=== PATIENT | female | born 1960 | race Hispanic/Latino ===

== ENCOUNTER 2016-07-11 15:11 | Inpatient (IN) | payer BC, OTHER ==
[2016-07-11 15:13] VITALS: BMI 32.8
[2016-07-11] MEDS ORDERED: Oxycodone/Acetaminophen 5/325 mg Tab PO STA (15:43)
[2016-07-11] MEDS ORDERED: Morphine 4 mg/ml ISec IVP STA (16:45)
[2016-07-11 16:53] LABS: ADD MANUAL DIFF? NO
[2016-07-11 17:00] LABS: BASO # 0.02 K/mm3 (0.0-2.0); BASO % 0.2 % (0.0-3.0); EOS # 0.1 (0.0-0.7); GRAN # 8.01 (1.4-6.5); GRAN % 81.5 % (50.0-68.0); HEMATOCRIT 29.1 % (36.0-48.0); LYMPH # 0.8 (1.2-3.4); LYMPH % 8.6 % (22.0-35.0); MEAN CELL VOLUME 87.4 fL (80.0-105.0); MEAN CORPUSCULAR HEMOGLOBIN 28.8 pg (25.0-35.0); MEAN PLATELET VOLUME 10.3 fl (7.0-11.0); MONO # 0.9 (0.1-0.6); MONO % 8.7 % (1.0-6.0); PLATELET COUNT 328 10^3/uL (120.0-450.0); RED CELL DISTRIBUTION WIDTH 15.6 % (11.5-14.5); WHITE BLOOD COUNT 9.8 10^3/ul (4.5-11.0)
[2016-07-11 17:05] LABS: ALB/GLOB RATIO 1.4 (1.1-1.8); ALKALINE PHOSPHATASE 94 U/L (38-133); ALT/SGPT 24 U/L (7-56); AST/SGOT 24 U/L (15-39); BILIRUBIN,TOTAL 0.4 mg/dL (0.2-1.3); BLOOD UREA NITROGEN 22 mg/dL (7-21); CALCIUM 9.7 mg/dL (8.4-10.5); CARBON DIOXIDE 30 mmol/L (21-33); CHLORIDE 99 mmol/L (98-107); GFR AFRICAN-AMERICAN > 60; POTASSIUM 4.8 mmol/L (3.6-5.0); SODIUM 137 mmol/L (132-148); TOTAL PROTEIN 6.7 g/dL (5.8-8.3)
--- NOTE | 2016-07-11 17:08 | ED PDOC ---
Arrival/HPI - General Chief Complaint: Dental Pain Time Seen by Provider: 07/11/16 15:24 Historian: Patient - History of Present Illness Narrative History of Present Illness (Text): 07/11/16 16:55 56yo female with PMHx of hypertension, diabetes, breast CA and currently undergoing chemo referred to ED by Dr. Bradley for tooth ache. Patient states left sided upper incisor toothache started weeks ago. States it cracked months ago and then again last week. The pain became increasingly worse over the past few days. she noticed mild swelling of her left sided cheek with pain today. States she wanted to see a Dentist today, but Dr. Bradley referred her to ED secondary to her medical history. She took Tylenol at home without relieve. she denies fever chills, any other complaint. Past Medical History - Provider Review Nursing Documentation Reviewed: Yes - Infectious Disease Hx of Infectious Diseases: None - Cardiac Hx Cardiac Disorders: Yes Hx Hypertension: Yes - Pulmonary Hx Respiratory Disorders: No - Neurological Hx Neurological Disorder: No - HEENT Hx HEENT Disorder: Yes Other/Comment: Wears Glasses - Renal Hx Renal Disorder: No - Endocrine/Metabolic Hx Endocrine Disorders: Yes Hx Diabetes Mellitus Type 2: Yes - Hematological/Oncological Hx Blood Disorders: Yes Hx Cancer: Yes (left breast 2016) - Integumentary Hx Dermatological Disorder: No - Musculoskeletal/Rheumatological Hx Musculoskeletal Disorders: No - Gastrointestinal Hx Gastrointestinal Disorders: No - Genitourinary/Gynecological Hx Genitourinary Disorders: No - Psychiatric Hx Psychophysiologic Disorder: No Hx Substance Use: No - Surgical History Hx Section: Yes (Two) Hx Orthopedic Surgery: Yes (Left Knee) Hx Vascular Access Device: Yes (Right Side Port 03/2016) Other/Comment: lump removed left breast and lymph nodes due to CA 03/2016 - Anesthesia Hx Anesthesia: Yes Hx Anesthesia Reactions: No Hx Malignant Hyperthermia: No Family/Social History - Physician Review Nursing Documentation Reviewed: Yes Family/Social History: Unknown Family HX Smoking Status: Never Smoked Hx Alcohol Use: Yes Frequency of alcohol use: Socially Hx Substance Use: No Allergies/Home Meds Allergies/Adverse Reactions: Allergies No Known Allergies Allergy (Verified 06/29/16 09:01) Home Medications: Home Meds Medication Instructions Recorded Confirmed Aspirin [Ecotrin] 81 mg PO DAILY 06/29/16 07/12/16 Enalapril Maleate [Vasotec] 10 mg PO DAILY 06/29/16 07/12/16 Insulin Glargine/Lixisenatide 15 unit SQ DAILY 06/29/16 07/12/16 [Soliqua 100 Unit-33 Mcg/ml Pen] Metformin ER [Glucophage XR] 500 mg PO BID 06/29/16 07/12/16 Pravastatin Sodium [Pravachol] 20 mg PO DAILY 06/29/16 07/12/16 Insulin Aspart, Recombinant 100 unit SQ ACHS 07/11/16 07/12/16 [Novolog] Meclizine HCl [Motion Sickness 25 mg PO DAILY 07/11/16 07/12/16 Relief] Ondansetron [Zofran] 8 mg PO BID 07/11/16 07/12/16 Acyclovir [Zovirax] 400 mg PO DAILY 07/12/16 07/12/16 Review of Systems - Physician Review All systems were reviewed & negative as marked: Yes - Review of Systems Constitutional: Normal Eyes: Normal ENT: Other (Toothache) Respiratory: Normal Cardiovascular: Normal Gastrointestinal: Normal Genitourinary Female: Normal Musculoskeletal: Normal Skin: Normal Neurological: Normal Endocrine: Normal Hemo/Lymphatic: Normal Psychiatric: Normal Physical Exam Vital Signs Reviewed: Yes Vital Signs Temp Pulse Resp BP Pulse Ox 07/11/16 21:08 86 18 151/53 H 96 07/11/16 18:15 98.2 F 17 178/85 H 98 07/11/16 17:29 110 H 16 159/84 H 100 07/11/16 15:13 98.0 F 105 H 18 175/73 H 99 Temperature: Afebrile Blood Pressure: Normal Pulse: Regular Respiratory Rate: Normal Appearance: Positive for: Well-Appearing, Non-Toxic, Comfortable Pain Distress: None Mental Status: Positive for: Alert and Oriented X 3 - Systems Exam Head: Present: Atraumatic, Normocephalic Pupils: Present: PERRL Extroacular Muscles: Present: EOMI Conjunctiva: Present: Normal Mouth: Present: Moist Mucous Membranes, Other (Mild swelling with over laying tenderness over left cheek area). No: Normal Teeth (Left upper incissor noted to be partially cracked. No gingival swelling noted.) Neck: Present: Normal Range of Motion Respiratory/Chest: Present: Clear to Auscultation, Good Air Exchange. No: Respiratory Distress, Accessory Muscle Use Cardiovascular: Present: Regular Rate and Rhythm, Normal S1, S2. No: Murmurs Abdomen: Present: Normal Bowel Sounds. No: Tenderness, Distention, Peritoneal Signs Back: Present: Normal Inspection Upper Extremity: Present: Normal Inspection. No: Cyanosis, Edema Lower Extremity: Present: Normal Inspection. No: Edema Neurological: Present: GCS=15, CN II-XII Intact, Speech Normal Skin: Present: Warm, Dry, Normal Color. No: Rashes Psychiatric: Present: Alert, Oriented x 3, Normal Insight, Normal Concentration Medical Decision Making ED Course and Treatment: 07/12/16 00:40 PT in ED for stated history. she was afebrile and hemodynamically stable in ED. Lab was unremarkable, except the elevated BS. Maxillofacial CT - IMPRESSION: Minimal subcutaneous edema in the left cheek; no acute sinusitis; limited evaluation of soft tissues into dental streak Additional findings as described above. Case was DW Dr. Bradley who requested that pt be admitted for IV abx secondary to her PMHx. Pt was admitted to Dr. Bradley. Result and plan was DW the pt and she agreed. - Lab Interpretations Lab Results: 07/11/16 16:29 07/11/16 16:29 Lab Results 07/11/16 16:29: Sodium 137, Potassium 4.8, Chloride 99, Carbon Dioxide 30, Anion Gap 13, BUN 22 H, Creatinine 0.9, Est GFR ( Amer) > 60, Est GFR ( Non-Af Amer) > 60, Random Glucose 331 H*, Calcium 9.7, Total Bilirubin 0.4, AST 24, ALT 24, Alkaline Phosphatase 94, Total Protein 6.7, Albumin 3.9, Globulin 2.8, Albumin/Globulin Ratio 1.4 07/11/16 16:29: WBC 9.8, RBC 3.33 L, Hgb 9.6 L, Hct 29.1 L, MCV 87.4, MCH 28.8, MCHC 33.0, RDW 15.6 H, Plt Count 328, MPV 10.3, Gran % 81.5 H, Lymph % (Auto) 8.6 L, Churchill % (Auto) 8.7 H, Eos % (Auto) 1.0 L, Baso % (Auto) 0.2, Gran # 8.01 H , Lymph # 0.8 L, Churchill # 0.9 H, Eos # 0.1, Baso # 0.02 - RAD Interpretation Radiology Orders: 07/11/16 16:08 MAXILLOFACIAL W/CONTRAST [CT] Stat - Medication Orders Current Medication Orders: Aspirin (Ecotrin) 81 mg PO DAILY [facility] Atorvastatin Calcium (Lipitor) 10 mg PO HS [facility] Last Admin: 07/11/16 22:19 Dose: Cefepime HCl (Maxipime 1gm) 1 gm in 100 mls @ 100 mls/hr IVPB Q8 [facility] PRN Reason: Protocol Insulin Human Regular (Humulin R High) 0 units SC ACHS [facility] PRN Reason: Protocol Last Admin: 07/11/16 22:19 Dose: 2 units Lisinopril (Zestril) 10 mg PO DAILY [facility] Metformin HCl (Glucophage Xr) 500 mg PO BID [facility] Last Admin: 07/11/16 21:03 Dose: Oxycodone/Acetaminophen (Percocet 5/325 Mg Tab) 1 tab PO Q4H PRN PRN Reason: Pain, moderate (4-7) Stop: 07/14/16 22:08 Last Admin: 07/11/16 22:20 Dose: 1 tab Re-Assess: [facility] Pain Assessment Document 07/11/16 23:20 MLS (Rec: 07/12/16 00:07 [email or web address]) Pain Reassessment Is this a pain reassessment? Yes Sleep Is patient sleeping during reassessment? No Presence of Pain Presence of Pain Yes Pain Scale Used Pain Scale Used Numeric Location Left, Right or Bilateral Left Pain Location Body Site Face Description Description Constant Intensity of Pain at present 5 Pain Behavior Facial Grimacing Alleviating Factors/Management Medication Techniques Alleviating Factors Medication Discontinued Medications Amoxicillin (Amoxil 500 Mg Cap) 500 mg PO STAT [facility] PRN Reason: Protocol Stop: 07/11/16 15:43 Last Admin: 07/11/16 15:52 Dose: 500 mg Clindamycin Phosphate 600 mg/ (Sodium Chloride) 54 mls @ 108 mls/hr IVPB STAT ST[facility] PRN Reason: Protocol Stop: 07/11/16 19:20 Last Admin: 07/11/16 21:15 Dose: 108 mls/hr Cefepime HCl (Maxipime 2gm) 2 gm in 100 mls @ 100 mls/hr IVPB STAT [facility] PRN Reason: Protocol Stop: 07/11/16 19:50 Last Admin: 07/11/16 20:10 Dose: 100 mls/hr Insulin Human Regular (Humulin R Med) 8 units IV ONCE STA PRN Reason: Protocol Stop: 07/11/16 18:54 Last Admin: 07/11/16 21:14 Dose: Iohexol (Omnipaque 350 100 Ml) Confirm Administered Dose 350 mg .ROUTE .STK-MED ONE Stop: 07/11/16 17:23 Morphine Sulfate (Morphine) 4 mg IVP STAT STA Stop: 07/11/16 16:46 Last Admin: 07/11/16 17:23 Dose: 4 mg Re-Assess: [facility] Pain Assessment Document 07/11/16 18:23 OCS (Rec: 07/11/16 18:49 OCS [id number]) Pain Reassessment Is this a pain reassessment? Yes Sleep Is patient sleeping during reassessment? No Presence of Pain Presence of Pain No Oxycodone/Acetaminophen (Percocet 5/325 Mg Tab) 1 tab PO STAT STA Stop: 07/11/16 15:44 Last Admin: 07/11/16 15:52 Dose: 1 tab Re-Assess: [facility] Pain Assessment Document 07/11/16 16:52 OCS (Rec: 07/11/16 17:24 OCS [id number]) Pain Reassessment Is this a pain reassessment? Yes Sleep Is patient sleeping during reassessment? No Presence of Pain Presence of Pain Yes Disposition/Present on Arrival - Present on Arrival Any Indicators Present on Arrival: No History of DVT/PE: No History of Uncontrolled Diabetes: No Urinary Catheter: No History of Decub. Ulcer: No History Surgical Site Infection Following: None - Disposition Have Diagnosis and Disposition been Completed?: Yes Diagnosis: Dental abscess, Hyperglycemia Disposition: HOSPITALIZED Disposition Time: 18:50 Patient Problems: Current Active Problems Problem Status Onset Dental abscess Acute Hyperglycemia Acute Condition: FAIR
[2016-07-11 17:13] LABS: GLUCOSE,RANDOM 331 mg/dL (70-110)
[2016-07-11] MEDS ORDERED: Iohexol 350 MG/100 ML VIAL ONE (17:22)
[2016-07-11] MEDS ORDERED: Insulin Reg-LOW-Coverage IV STA (17:23)
--- NOTE | 2016-07-11 18:41 | CT ---
EXAM: CT Maxillofacial With Intravenous Contrast CLINICAL HISTORY: 56 years old, female; Signs and symptoms; Mass, lump, or swelling; Location not specified; Additional info: Left facial swelling; breast cancer TECHNIQUE: Axial computed tomography images of the face with intravenous contrast. This CT exam was performed using one or more of the following dose reduction techniques: automated exposure control, adjustment of the mA and/or kV according to patient size, and/or use of iterative reconstruction technique. Coronal reformatted images were created and reviewed. CONTRAST: 100 mL of omni 350 administered intravenously. EXAM DATE/TIME: 07/11/2016 4:08 PM COMPARISON: There are no prior studies for comparison. FINDINGS: Artifact: Streak artifact from dental fillings degrades image quality. Bones/joints: There degenerative changes in the spine. Prevertebral soft tissues are unremarkable. Soft tissues: Parapharyngeal spaces are symmetric. There are no deep fascial masses. Streak artifact from dental fillings limits evaluation of the left facial soft tissues. There is minimal edema in the subcutaneous fat of the left cheek. Vasculature: Vascular structures are unremarkable. Orbits: Orbital contents are unremarkable. Submandibular/parotid glands: Parotid and submandibular glands are unremarkable Sinuses: There is minimal mucoperiosteal thickening in the left maxillary sinus. There is no acute sinusitis. Ostiomeatal complexes are patent bilaterally. Middle ears and mastoids:Middle ears and mastoids are well-aerated. Dental: Streak artifact from dental fillings degrades image quality. There are apical erosions in the left maxilla Brain: No focal abnormalities are seen in the visualized portion of the brain. Tonsils and adenoids: Tonsils and adenoids are unremarkable. Thyroid: Visualized portion of the thyroid is unremarkable. Airway: Airway is unremarkable IMPRESSION: Minimal subcutaneous edema in the left cheek; no acute sinusitis; limited evaluation of soft tissues into dental streak Additional findings as described above.
[2016-07-11] MEDS ORDERED: Cefepime IV 2 gm in NS 2 GM/100 ML BAG IVPB STA (18:51)
[2016-07-11] MEDS ORDERED: Insulin Reg-MEDIUM-Coverage IV STA (18:53)
[2016-07-11] MEDS: Insulin Reg-HIGH-Coverage SC SCH (22:19)
[2016-07-11] MEDS: Oxycodone/Acetaminophen 5/325 mg Tab PO PRN (22:20)
[2016-07-12] MEDS: Oxycodone/Acetaminophen 5/325 mg Tab PO PRN ×3 (02:32→17:41)
[2016-07-12] MEDS ORDERED: Cefepime 1gm in NS 100ml 1 GM/100 ML BAG IVPB SCH (06:00)
[2016-07-12] MEDS: Insulin Reg-HIGH-Coverage SC SCH ×4 (07:26→21:44)
[2016-07-12] MEDS ORDERED: metroNIDAZOLE IV 500 mg/100 ml 500 MG/100 ML BAG IVPB SCH (07:30)
[2016-07-12] MEDS ORDERED: Iohexol 350 MG/100 ML VIAL ONE (08:57)
--- NOTE | 2016-07-12 10:07 | CT ---
PROCEDURE: CT of the mandible without contrast HISTORY: rule out dental abscess COMPARISON: CT facial bones 07/11/2016 TECHNIQUE: CT of the mandible was performed in the axial plane without IV contrast. Sagittal and coronal reconstructions were provided FINDINGS: There is no evidence of bony destruction to suggest dental abscess in the mandible or maxilla. There are no bony abnormalities seen. IMPRESSION: Negative study
[2016-07-12] MEDS: Piperacillin/Tazobact 3.375 gm 100 ML IV SCH ×2 (12:09→17:16)
--- NOTE | 2016-07-12 12:26 | HP ---
CHIEF COMPLAINT AND HISTORY OF PRESENT ILLNESS: This is a 56-year-old female who is coming in to the hospital with a past medical history of breast cancer, undergoing chemotherapy by Dr. Bradley; hyperte nsion; diabetes, type 2. She says that she has been having left upper tooth pain. She said that she started developing swelling after her tooth had cracked about a month ago. She said it became worse over the last few days. The pain was starting to worsen and so she was concerned and came into the ER for further evaluation. She has not been able to see a dentist. She does not have an established dentist. The patient says that she was taking Tylenol without much relief. She denies any fevers o r chills, no nausea, no vomiting, no dysuria or frequency, no problems with dysphagia or dysarthria. REVIEW OF SYSTEMS: All other review of symptoms are within normal limits except as mentioned. ALLERGIES: No known drug allergies. SOCIAL HISTORY: She does not smoke. She drinks socially. MEDICATIONS: She is on aspirin, Vasotec, metformin, Pravachol, NovoLog, Zofran, Zovirax. FAMILY HISTORY: Noncontributory. PAST MEDICAL HISTORY: As above. PAST SURGICAL HISTORY: Left lumpectomy and lymph node removal. PHYSICAL EXAMINATION: VITAL SIGNS: Temperature is 98.4, pulse of 88, blood pressure 149/76, respirations 20, O2 saturation 94%. Height is 5 feet 3, weight is 185 pounds, BMI is 32. GENERAL: Patient lying in bed, flat, and in no apparent distress. HEAD AND NECK EXAM: Atraumatic, normocephalic. Conjunctivae are pink. Throat clear and mouth with moist mucosa. Oropharynx benign. There is a cracked tooth, left canine I believe, with dental nelson es. EYES: Extraocular movements are intact. PERRLA. NECK: Supple. No JVD, thyromegaly, or adenopathy. No bruits. HEART: S1 and S2 regular rate and rhythm. No murmurs, rubs, or gallops. LUNGS: Clear to auscultation bilaterally. No wheezing rales or rhonchi appreciated. No retraction s on exam. ABDOMEN: Soft, nontender, nondistended. Bowel sounds are positive in all quadrants. No rebound. No hepatosplenomegaly. EXTREMITIES: No cyanosis, clubbing, or edema. NEURO: No facial asymmetry, tongue is midline, no uvula deviation. Power is 5/5 in upper extremity and 5/5 in lower extremity. Sensation is normal in upper extremity and lower extremity. PSYCH: Awake, alert, oriented x3. No anxiety or depression symptoms. Good insight. Normal affec t. : No CVA tenderness VASCULAR: 2+ pulses in carotid and pedal pulses. SKIN: No erythema or abnormal nodules noted. SPINE: Normal curvature. LYMPHADENOPATHY: No anterior cervical or posterior cervical adenopathy. No inguinal adenopathy. LABORATORY DATA: White count of 9.8, hemoglobin 9.6, platelet count 328. Chemistry shows a sodium 1 37, potassium 4.8, creatinine is 0.9, glucose of 331. CT of the maxillofacial done shows no evidence of bony destruction to suggest dental abscess. It is a negative study. ASSESSMENT: 1. Left tooth infection. 2. Breast cancer. 3. Hypertension. PLAN: The patient is currently admitted to the hospital. I will get Dr. Domingo to evaluate the patient. The patient sees Dr. Bradley. I will have her follow as well. She has breast cancer history . She was started on IV antibiotics. She does not have much swelling at this point. Her pain is co ntrolled with narcotics. The patient is on lisinopril for hypertension. She is on Lipitor for her d yslipidemia. Jaiden Hough MD cc: 358 TT: 07/12/2016 12:25:41 or
--- NOTE | 2016-07-12 12:27 | CP.PCM.CON ---
History of Present Illness - History of Present Illness History of Present Illness: 56 year old female with PMH of HTN, DM, left breast cancer S/P surgery in 2016, S/P port placement 2016, on chemotherapy, has been complaining of a toothache on the left maxillary area (incisor tooth). She states that she cracked her tooth months ago as well as aggravated it last week, and she started having more pain around the area as well as swelling on the left facial area. The patient denies fever or chills, no headache, no sore throat, no rhinorrhea, no abdominal pain, no chest pain, no SOB, no cough, no diarrhea, no dysuria. Infectious diseases consult is requested to further evaluate and manage. Review of Systems - Review of Systems All systems: reviewed and no additional remarkable complaints except (as per HPI ) Past Patient History - Infectious Disease Hx of Infectious Diseases: None - Past Social History Smoking Status: Never Smoked - CARDIAC Hx Cardiac Disorders: Yes Hx Hypertension: Yes - PULMONARY Hx Respiratory Disorders: No - NEUROLOGICAL Hx Neurological Disorder: No - HEENT Hx HEENT Problems: Yes Other/Comment: Wears Glasses - RENAL Hx Chronic Kidney Disease: No - ENDOCRINE/METABOLIC Hx Endocrine Disorders: Yes Hx Diabetes Mellitus Type 2: Yes - HEMATOLOGICAL/ONCOLOGICAL Hx Blood Disorders: Yes Hx Cancer: Yes (left breast 2016) - INTEGUMENTARY Hx Dermatological Problems: No - MUSCULOSKELETAL/RHEUMATOLOGICAL Hx Musculoskeletal Disorders: No - GASTROINTESTINAL Hx Gastrointestinal Disorders: No - GENITOURINARY/GYNECOLOGICAL Hx Genitourinary Disorders: No - PSYCHIATRIC Hx Psychophysiologic Disorder: No Hx Substance Use: No - SURGICAL HISTORY Hx Section: Yes (Two) Hx Orthopedic Surgery: Yes (Left Knee) Hx Vascular Access Device: Yes (Right Side Port 03/2016) Other/Comment: lump removed left breast and lymph nodes due to CA 03/2016 - ANESTHESIA Hx Anesthesia: Yes Hx Anesthesia Reactions: No Hx Malignant Hyperthermia: No Meds Allergies/Adverse Reactions: Allergies Allergy/AdvReac Type Severity Reaction Status Date / Time No Known Allergies Allergy Verified 06/29/16 09:01 - Medications Medications: Current Medications Aspirin (Ecotrin) 81 mg PO DAILY [facility] Atorvastatin Calcium (Lipitor) 10 mg PO HS [facility] Last Admin: 07/11/16 22:19 Dose: Not Given Cefepime HCl (Maxipime 1gm) 1 gm in 100 mls @ 100 mls/hr IVPB Q8 [facility] PRN Reason: Protocol Last Admin: 07/12/16 06:21 Dose: 100 mls/hr Metronidazole (Flagyl) 500 mg in 100 mls @ 100 mls/hr IVPB Q8 [facility] PRN Reason: Protocol Insulin Human Regular (Humulin R High) 0 units SC ACHS [facility] PRN Reason: Protocol Last Admin: 07/12/16 07:26 Dose: 10 units Lisinopril (Zestril) 10 mg PO DAILY [facility] Metformin HCl (Glucophage Xr) 500 mg PO BID [facility] Last Admin: 07/11/16 21:03 Dose: Not Given Oxycodone/Acetaminophen (Percocet 5/325 Mg Tab) 1 tab PO Q4H PRN PRN Reason: Pain, moderate (4-7) Stop: 07/14/16 22:08 Last Admin: 07/12/16 06:21 Dose: 1 tab Physical Exam - Constitutional Appears: Non-toxic, No Acute Distress - ENT Exam Additional comments: facial swelling and some erythema noted on the left face; note of cracked left incisor tooth on the left maxillary area - Neck Exam Neck exam: Negative for: Lymphadenopathy, Meningismus - Respiratory Exam Respiratory Exam: Decreased Breath Sounds - Cardiovascular Exam Cardiovascular Exam: +S1, +S2 - GI/Abdominal Exam GI & Abdominal Exam: Soft. absent: Tenderness Results - Vital Signs Recent Vital Signs: Last Vital Signs Temp 98.2 F 07/11/16 22:00 Pulse 94 H 07/11/16 22:00 Resp 19 07/11/16 22:00 BP 177/82 H 07/11/16 22:00 Pulse Ox 96 07/11/16 21:08 - Labs Result Diagrams: 07/11/16 16:29 07/11/16 16:29 Labs: Laboratory Results - last 24 hr 07/11/16 20:41 POC Glucose (mg/dL) 337 H Assessment & Plan - Assessment and Plan (Free Text) Plan: Assessment Consider periodontal infection on the left incisor tooth of the left maxillary area, with associated left sided facial cellulitis HTN DM left breast cancer S/P surgery in 2016 S/P port placement 2016, on chemotherapy Plan initially started on Cefepime and Flagyl, patient developed vomiting, therefore we have changed antibiotics to Zosyn and will monitor clinical response, follow up blood cx will monitor clinically
--- NOTE | 2016-07-12 20:39 | CP.PCM.PN ---
Subjective - Date & Time of Evaluation Date of Evaluation: 07/12/16 Time of Evaluation: 20:38 - Subjective Subjective: Patient was seen at bedside because of nauseous and vomiting, 133/72 89 98.9*F, 94 % RA. States that she vomited x 3. Has no other complaints. Denies headache, dizziness, paraesthesia, weakness, abdominal pain, diarrhoea. Medical record was reviewed. This 56 year old woman was admitted with left upper tooth pain PMH:breast cancer,Chemotherapy, HTN,DM II , left lumpectomy , lymph node removal. Objective - Vital Signs/Intake and Output Vital Signs (last 24 hours): Temp Pulse Resp BP Pulse Ox 98.8 F 81 18 140/60 93 L 07/12/16 16:00 07/12/16 16:00 07/12/16 16:00 07/12/16 16:00 07/12/16 16:00 Intake and Output: 07/12/16 07/13/16 18:59 06:59 Intake Total 480 Balance 480 - Medications Medications: Current Medications Aspirin (Ecotrin) 81 mg PO DAILY [facility] Last Admin: 07/12/16 09:05 Dose: 81 mg Atorvastatin Calcium (Lipitor) 10 mg PO HS [facility] Last Admin: 07/11/16 22:19 Dose: Not Given Piperacillin Sod/Tazobactam Sod (Zosyn 3.375 In Ns 100ml) 100 mls @ 200 mls/hr IV Q6 [facility] PRN Reason: Protocol Stop: 07/19/16 12:01 Last Admin: 07/12/16 17:16 Dose: 200 mls/hr Insulin Human Regular (Humulin R High) 0 units SC ACHS [facility] PRN Reason: Protocol Last Admin: 07/12/16 17:17 Dose: 2 units Lisinopril (Zestril) 10 mg PO DAILY [facility] Last Admin: 07/12/16 09:05 Dose: 10 mg Metformin HCl (Glucophage Xr) 500 mg PO BID [facility] Last Admin: 07/12/16 17:16 Dose: Not Given Oxycodone/Acetaminophen (Percocet 5/325 Mg Tab) 1 tab PO Q4H PRN PRN Reason: Pain, moderate (4-7) Stop: 07/14/16 22:08 Last Admin: 07/12/16 17:41 Dose: 1 tab - Constitutional Appears: Well, No Acute Distress - Head Exam Head Exam: ATRAUMATIC, NORMAL INSPECTION, NORMOCEPHALIC - Eye Exam Eye Exam: Normal appearance - ENT Exam ENT Exam: Normal External Ear Exam - Neck Exam Neck Exam: Normal Inspection - Respiratory Exam Respiratory Exam: NORMAL BREATHING PATTERN - Cardiovascular Exam Cardiovascular Exam: absent: JVD - GI/Abdominal Exam GI & Abdominal Exam: Normal Bowel Sounds. absent: Distended, Tenderness - Rectal Exam Rectal Exam: Deferred - Extremities Exam Extremities Exam: Normal Inspection - Back Exam Back Exam: NORMAL INSPECTION - Neurological Exam Neurological Exam: Alert, Oriented x3 - Psychiatric Exam Psychiatric exam: Normal Affect, Normal Mood - Skin Skin Exam: Normal Color Assessment and Plan - Assessment and Plan (Free Text) Assessment: Nausea. Hyperglycemia. Anemia. Breast cancer. Hypertension. DM II. Plan: Zofran 4 mg IV Stat. Protonix 40 mg IV stat. Protonix 40 mg PO daily. Continue present management.
[2016-07-13] MEDS: Piperacillin/Tazobact 3.375 gm 100 ML IV SCH ×3 (00:54→12:16)
[2016-07-13] MEDS ORDERED: Pantoprazole 40 mg EC Tab PO SCH (06:30)
[2016-07-13 07:47] VITALS: RESP 20; TEMP 99.2; O2SAT 95
[2016-07-13] MEDS: Insulin Reg-HIGH-Coverage SC SCH ×2 (08:36→12:16)
[2016-07-13 09:13] VITALS: BP 148/87; PULSE 90
--- NOTE | 2016-07-13 10:01 | DS ---
SUBJECTIVE: The patient has no complaints of any chest pain or shortness of breath, no headaches. S he initially was admitted to the hospital because of pain in her tooth. The patient had been placed on antibiotics. She has improvement of her symptoms. She had a CT done that did not show an abscess . I did speak to Dr. Madera who is a dentist in the community. He is willing to see the patient. I will give the phone number to the patient to follow up. Cultures have been negative. Pain is contro lled. PHYSICAL EXAMINATION: VITAL SIGNS: Temperature is 99.2, pulse of 88, blood pressure 148/77, respirations 20. GENERAL: The patient comfortable, in no acute distress. HEENT: Anicteric sclerae. Moist mucosa. NECK: No JVD or adenopathy. CARDIAC: S1/S2. No murmurs. No rubs. Regular. RESPIRATORY: Clear to auscultation bilaterally. No wheezes, rales, or rhonchi. Good air entry. ABDOMEN: Bowel sounds are positive, soft, nontender, and nondistended. EXTREMITIES: No edema. Has 1+ pulses. ASSESSMENT: 1. Left tooth infection. 2. Breast cancer. 3. Hypertension. PLAN: The patient is currently comfortable. She had an episode of vomiting yesterday, possibly from the antibiotics. She was given Zofran, Protonix. She has blood cultures that have been negative. We will speak to ID to see if the patient is cleared for discharge. The patient is on Lipitor for dy slipidemia. She is on Percocet for pain. She is on ____. CONDITION: Stable. ACTIVITIES: Increase as tolerated. Jaiden Hough MD cc: [id number] TT: 07/13/2016 10:01:11 tn
--- NOTE | 2016-07-13 17:32 | CP.PCM.PN ---
Subjective - Date & Time of Evaluation Date of Evaluation: 07/13/16 Time of Evaluation: 10:45 - Subjective Subjective: Comfortable, less pain in the left maxillary area, less facial swelling. No fevers overnight. Objective - Vital Signs/Intake and Output Vital Signs (last 24 hours): Temp Pulse Resp BP Pulse Ox 99.2 F 90 20 148/87 95 07/13/16 07:46 07/13/16 09:04 07/13/16 07:46 07/13/16 09:04 07/13/16 07:46 Intake and Output: 07/13/16 07/13/16 06:59 18:59 Intake Total 220 950 Balance 220 950 - Constitutional Appears: Non-toxic, No Acute Distress - Head Exam Head Exam: NORMAL INSPECTION - ENT Exam Additional comments: decreased left facial swelling - Neck Exam Neck Exam: absent: Meningismus - Respiratory Exam Respiratory Exam: Decreased Breath Sounds - Cardiovascular Exam Cardiovascular Exam: +S1, +S2 - GI/Abdominal Exam GI & Abdominal Exam: Soft. absent: Tenderness Assessment and Plan - Assessment and Plan (Free Text) Plan: Assessment Consider periodontal infection on the left incisor tooth of the left maxillary area, with associated left sided facial cellulitis, clinically improving HTN DM left breast cancer S/P surgery in 2016 S/P port placement 2016, on chemotherapy Plan on Zosyn day 2; blood cx are negative - as discussed with Dr. Blevins, we can switch to PO Augmentin for another 7-10 days
== END 2016-07-13 15:00 | disposition home or self-care (01) | DRG 158 ==
LOC: ED 15:11 → ERH 18:53 → 3RNO 22:03
PROVIDERS: ADMIT Internal Medicine Medical Oncology; ATTEND Internal Medicine Nephrology
DX: K04.7 Periapical abscess without sinus (principal); L03.211 Cellulitis of face; C50.912 Malignant neoplasm of unspecified site of left female breast; E11.65 Type 2 diabetes mellitus with hyperglycemia; I10 Essential (primary) hypertension; E78.5 Hyperlipidemia, unspecified; D64.9 Anemia, unspecified; Z79.82 Long term (current) use of aspirin

== ENCOUNTER 2016-12-01 17:23 | Inpatient (IN) | payer BC, OTHER ==
[2016-12-01] MEDS ORDERED: Piperacillin/Tazobact 3.375 gm 100 ML IVPB STA (17:59)
[2016-12-01] MEDS ORDERED: Vancomycin 1.5 GM in Sodium Chloride 0.9% 500 ML IVPB ONE (18:00)
--- NOTE | 2016-12-01 18:02 | ED PDOC ---
Arrival/HPI - General Chief Complaint: GI Problem Time Seen by Provider: 12/01/16 17:41 Historian: Patient, Family (son) - History of Present Illness Narrative History of Present Illness (Text): 12/01/16 17:45 A 56 year old female, whose past medical history includes hypertension, diabetes , breast CA (currently undergoing chemotherapy), is accompanied by her son and presents to the emergency department complaining of lower back pain. Patient reports she has been experiencing pain all day today when having bowel movement. Patient also notes experiencing diarrhea (ongoing for 1 week), 1 episode of vomiting yesterday, and intermittent cough. Patient mentions she has been undergoing chemotherapy treatment since May; last appointment was 6 days ago and has two more appointments left until she can begin radiation process. She notes that next two treatments will have been her 7th round of chemo. Temperature taken today was at 100.5. Also, she mentions experiencing abdominal discomfort (which she describes as "tight" and has trouble breathing due to it) and b/l leg swelling and pain (more so on right leg than left leg). She is uncertain what is causing symptoms. PMD: Dr. Mcleod Oncologist: Dr. Bradley Symptom Onset: Gradual Symptom Course: Unchanged Past Medical History - Provider Review Nursing Documentation Reviewed: Yes - Infectious Disease Hx of Infectious Diseases: None - Cardiac Hx Hypertension: Yes - Pulmonary Hx Respiratory Disorders: No - Neurological Hx Neurological Disorder: No - HEENT Hx HEENT Disorder: Yes Other/Comment: Wears Glasses - Renal Hx Renal Disorder: No - Endocrine/Metabolic Hx Endocrine Disorders: Yes Hx Diabetes Mellitus Type 1: Yes Hx Diabetes Mellitus Type 2: Yes - Hematological/Oncological Hx Blood Disorders: Yes Hx Cancer: Yes (left breast 2017- lumpectomy) Hx Chemotherapy: Yes (Last Monday) - Integumentary Hx Dermatological Disorder: No - Musculoskeletal/Rheumatological Hx Musculoskeletal Disorders: No - Gastrointestinal Hx Gastrointestinal Disorders: No - Genitourinary/Gynecological Hx Genitourinary Disorders: No - Psychiatric Hx Psychophysiologic Disorder: No Hx Substance Use: No - Surgical History Hx Breast Biopsy: Yes (left breast lumpectomy due to CA) Hx Section: Yes (Two) Hx Orthopedic Surgery: Yes (Left Knee) Hx Vascular Access Device: Yes (Right Side Port 03/2016) Other/Comment: lump removed left breast and lymph nodes due to CA 03/2016. Left breast CA - Anesthesia Hx Anesthesia: Yes Hx Anesthesia Reactions: No Hx Malignant Hyperthermia: No Family/Social History - Physician Review Nursing Documentation Reviewed: Yes Family/Social History: No Known Family HX Smoking Status: Never Smoked Hx Alcohol Use: Yes Frequency of alcohol use: Socially Hx Substance Use: No Allergies/Home Meds Allergies/Adverse Reactions: Allergies morphine Allergy (Verified 12/01/16 17:42) RASH Home Medications: Home Meds Medication Instructions Recorded Confirmed Aspirin [Ecotrin] 81 mg PO DAILY 06/29/16 12/01/16 Enalapril Maleate [Vasotec] 10 mg PO DAILY 06/29/16 12/01/16 Insulin Glargine/Lixisenatide 15 unit SQ DAILY 06/29/16 12/01/16 [Soliqua 100 Unit-33 Mcg/ml Pen] Metformin ER [Glucophage XR] 500 mg PO BID 06/29/16 12/01/16 Insulin Aspart, Recombinant 100 unit SQ ACHS 07/11/16 12/01/16 [Novolog] Ondansetron [Zofran Tab] 8 mg PO BID 07/11/16 12/01/16 Acyclovir [Zovirax] 400 mg PO DAILY 07/12/16 12/01/16 Calcium Carbonate [Calcium] 1 tab PO DAILY 12/01/16 12/01/16 Dexamethasone [Decadron] 4 mg PO DAILY 12/01/16 12/01/16 Famotidine [Pepcid] 20 mg PO DAILY 12/01/16 12/01/16 Magnesium Oxide [Magnesium] 500 mg PO DAILY 12/01/16 12/01/16 Review of Systems - Physician Review All systems were reviewed & negative as marked: Yes - Review of Systems Respiratory: SOB (associated with "tight" abdominal discomfort), Cough ( intermittent cough) Gastrointestinal: Abdominal Pain (abdominal discomfort patient describes as "tight" that causes her to have difficulty breathing), Diarrhea (ongoing diarrhea for 1 week), Nausea, Vomiting (1 episode of vomiting yesterday) Musculoskeletal: Back Pain (lower back pain), Other (b/l leg swelling and pain ( more so on right leg than left leg)) Physical Exam Vital Signs Reviewed: Yes Vital Signs Temp Pulse Resp BP Pulse Ox 12/01/16 17:36 98.4 F 96 H 16 126/60 97 Temperature: Afebrile Blood Pressure: Normal Pulse: Regular Respiratory Rate: Normal Appearance: Positive for: Well-Appearing Pain Distress: None Mental Status: Positive for: Alert and Oriented X 3 - Systems Exam Head: Present: Atraumatic, Normocephalic Pupils: Present: PERRL Extroacular Muscles: Present: EOMI Conjunctiva: Present: Other (pallor) Mouth: Present: Moist Mucous Membranes Neck: Present: Normal Range of Motion Respiratory/Chest: Present: Other (chest wall nontender, no lymphanopathy) Cardiovascular: Present: Regular Rate and Rhythm, Normal S1, S2. No: Murmurs Abdomen: Present: Tenderness (diffused tenderness). No: Rebound, Guarding Back: Present: Other (lumbar diffused discomfort with no point tenderness). No : CVA Tenderness Upper Extremity: Present: Normal Inspection. No: Cyanosis, Edema Lower Extremity: Present: Normal Inspection. No: Edema Neurological: Present: GCS=15, CN II-XII Intact, Speech Normal Skin: Present: Warm, Dry, Normal Color. No: Rashes Psychiatric: Present: Alert, Oriented x 3, Normal Insight, Normal Concentration Medical Decision Making ED Course and Treatment: 12/01/16 17:50 Impression: 56 year old female with lower back pain and abdominal discomfort. Differential Diagnosis included but are not limited to: Gastroenteritis secondary to chemotherapy vs. Sepsis Plan: -- Abd/Pelvis CT -- Chest X-ray -- Labs -- Vancomycin -- Zosyn -- Blood Culture -- Urine Culture -- Urinalysis -- Reassess and disposition Prior Visits: Notes and results from previous visits were reviewed. Patient was last seen in the emergency department on 07/11/2016 for toothache after being referred to the ER by Dr. Bradley. Patient was admitted. Progress Notes: - Lab Interpretations Microbiology Results: Microbiology Results 12/01/16 18:20 Blood-Venous Blood Culture - Final NO GROWTH AFTER 5 DAYS 12/01/16 18:20 Blood-Venous Gram Stain - Final TEST NOT PERFORMED 12/01/16 17:50 Blood-Venous Blood Culture - Final NO GROWTH AFTER 5 DAYS 12/01/16 17:50 Blood-Venous Gram Stain - Final TEST NOT PERFORMED Lab Results: 12/01/16 18:20 12/01/16 18:20 Lab Results 12/01/16 18:20: Sodium 137, Potassium 4.6, Chloride 102, Carbon Dioxide 26, Anion Gap 14, BUN 27 H, Creatinine 1.0, Est GFR ( Amer) > 60, Est GFR ( Non-Af Amer) 58, Random Glucose 304 H*, Calcium 8.9, Total Bilirubin 0.3, AST 20 , ALT 23, Alkaline Phosphatase 65, Total Protein 4.9 L, Albumin 2.8 L, Globulin 2.1, Albumin/Globulin Ratio 1.3, Amylase < 30 L, Lipase 98 12/01/16 18:20: WBC 5.7 D, RBC 2.84 L, Hgb 8.7 L, Hct 26.8 L, MCV 94.4, MCH 30.6, MCHC 32.5, RDW 14.5, Plt Count 308, MPV 9.7, Gran % 81.2 H, Lymph % (Auto ) 10.4 L, [place] % (Auto) 7.6 H, Eos % (Auto) 0.4 L, Baso % (Auto) 0.4, Gran # 4.60, Lymph # 0.6 L, [place] # 0.4, Eos # 0.0, Baso # 0.02 I have reviewed the lab results: Yes - RAD Interpretation Radiology Orders: 12/01/16 17:52 CHEST PORTABLE [RAD] Stat 12/01/16 17:57 ABD & PELVIS IV CONTRAST ONLY [CT] Stat - Medication Orders Current Medication Orders: Discontinued Medications Acetaminophen (Tylenol 325mg Tab) 650 mg PO STAT STA Stop: 12/02/16 00:04 Last Admin: 12/02/16 01:03 Dose: 650 mg [facility] Pain/Vitals Document 12/02/16 01:03 KTR (Rec: 12/02/16 01:04 KTR [id number]) Pain Reassessment Is This A Pain ReAssessment? No Presence of Pain Presence of Pain Yes Location Upper or Lower Lower Pain Location Body Site Back Acetaminophen (Tylenol 325mg Tab) 650 mg PO Q4H PRN PRN Reason: Fever >100.4 F Last Admin: 12/07/16 05:23 Dose: 650 mg MAR Pain/Vitals Document 12/07/16 05:23 OLIVD (Rec: 12/07/16 05:23 OLIVD [id number]) Vitals Temperature (97.6 F-99.6 F) 100.2 F Temperature Source Oral Acyclovir (Zovirax) 400 mg PO BID KATTY PRN Reason: Protocol Last Admin: 12/07/16 17:48 Dose: 400 mg Vancomycin HCl 1.5 gm/ Sodium (Chloride) 500 mls @ 167 mls/hr IVPB ONCE ONE PRN Reason: Protocol Stop: 12/01/16 20:59 Last Admin: 12/01/16 20:30 Dose: 167 mls/hr eMAR Start Stop Document 12/01/16 20:30 MR (Rec: 12/01/16 20:31 MR [id number]) Intravenous Solution Start Date 12/01/16 Start Time 20:30 End Date 12/01/16 End time 23:30 Total Infusion Time 180 Piperacillin Sod/Tazobactam Sod (Zosyn 3.375 In Ns 100ml) 100 mls @ 200 mls/hr IVPB STAT STA PRN Reason: Protocol Stop: 12/01/16 18:28 Last Admin: 12/01/16 18:29 Dose: 200 mls/hr eMAR Start Stop Document 12/01/16 18:29 OCS (Rec: 12/01/16 18:29 OCS [id number]) Intravenous Solution Start Date 12/01/16 Start Time 18:29 Sodium Chloride (Sodium Chloride 0.9%) 1,000 mls @ 999 mls/hr IV .Q1H1M STA Stop: 12/01/16 19:50 Last Admin: 12/01/16 19:29 Dose: 999 mls/hr eMAR Start Stop Document 12/01/16 19:29 OCS (Rec: 12/01/16 19:30 OCS [facility] [id number]) Intravenous Solution Start Date 12/01/16 Start Time 19:30 Sodium Chloride (Sodium Chloride 0.9%) 1,000 mls @ 100 mls/hr IV .Q10H KATTY Last Admin: 12/03/16 21:57 Dose: 100 mls/hr eMAR Start Stop Document 12/03/16 21:57 RR (Rec: 12/03/16 21:57 RR [id number]) Intravenous Solution Start Date 12/03/16 Start Time 21:57 Piperacillin Sod/Tazobactam Sod (Zosyn 3.375 In Ns 100ml) 100 mls @ 200 mls/hr IVPB Q6 KATTY PRN Reason: Protocol Stop: 12/02/16 06:29 Last Admin: 12/02/16 05:15 Dose: 200 mls/hr eMAR Start Stop Document 12/02/16 05:15 KTR (Rec: 12/02/16 05:15 KTR [id number]) Intravenous Solution Start Date 12/02/16 Start Time 05:15 Meropenem 1g/NS 100mL IVPB (Meropenem 1g/Ns 100ml Ivpb) 1 gm in 100 mls @ 100 mls/hr IVPB Q8 KATTY PRN Reason: Protocol Stop: 12/11/16 07:29 Last Admin: 12/05/16 22:12 Dose: 100 mls/hr eMAR Start Stop Document 12/05/16 22:12 OLIVD (Rec: 12/05/16 22:13 OLIVD [id number]) Intravenous Solution Start Date 12/05/16 Start Time 22:13 End Date 12/05/16 End time 23:13 Total Infusion Time 60 Magnesium Sulfate/Dextrose (Magnesium Sulfate 1 Gm/100 Ml D5w) 1 gm in 100 mls @ 100 mls/hr IVPB ONCE ONE Stop: 12/05/16 12:49 Last Admin: 12/05/16 12:54 Dose: 100 mls/hr eMAR Start Stop Document 12/05/16 12:54 MV (Rec: 12/05/16 12:54 MV [id number]) Intravenous Solution Start Date 12/05/16 Start Time 12:54 Potassium Chloride (Potassium Chloride 10 Meq/100 Ml) 10 meq in 100 mls @ 100 mls/hr IVPB Q2H KATTY Stop: 12/05/16 14:59 Last Admin: 12/05/16 14:00 Dose: 100 mls/hr eMAR Start Stop Document 12/05/16 14:00 MV (Rec: 12/05/16 17:51 MV [id number]) Intravenous Solution Start Date 12/05/16 Start Time 14:00 Meropenem (Merrem Iv 1 Gm Premix) 50 mls @ 100 mls/hr IVPB Q8 KATTY PRN Reason: Protocol Stop: 12/11/16 07:29 Last Admin: 12/07/16 14:34 Dose: 100 mls/hr eMAR Start Stop Document 12/07/16 14:34 MANIL (Rec: 12/07/16 14:35 MANIL [id number]) Intravenous Solution Start Date 12/07/16 Start Time 14:34 End Date 12/07/16 End time 15:34 Total Infusion Time 60 Vancomycin HCl 1.5 gm/ Sodium (Chloride) 250 mls @ 167 mls/hr IVPB ONCE ONE PRN Reason: Protocol Stop: 12/06/16 12:57 Last Admin: 12/06/16 13:13 Dose: 167 mls/hr eMAR Start Stop Document 12/06/16 13:13 MANIL (Rec: 12/06/16 13:13 MANIL [id number]) Intravenous Solution Start Date 12/06/16 Start Time 13:13 End Date 12/06/16 End time 14:43 Total Infusion Time 90 Insulin Human Regular (Humulin R) 0 units SC ACHS KATTY PRN Reason: Protocol Last Admin: 12/07/16 16:30 Dose: Not Given Non-Admin Reason: Blood Sugar Parameter MAR Blood Glucose Document 12/07/16 16:30 MANIL (Rec: 12/07/16 17:07 MANIL [id number]) Blood Glucose Finger Stick Blood Glucose (70-120) 130 Subcutaneous Administrations Document 12/07/16 16:30 MANIL (Rec: 12/07/16 17:07 MANIL [id number]) Injection Site MAR Injection Site Right Abdomen Charges for Administration # of Subcutaneous Administrations 1 Nystatin (Nystatin Oral Susp) 5 ml PO QID [facility] Last Admin: 12/07/16 17:07 Dose: Not Given Non-Admin Reason: Patient Refused Ondansetron HCl (Zofran Inj) 4 mg IVP Q6H KATTY Last Admin: 12/02/16 21:22 Dose: 4 mg IVP Administration Document 12/02/16 21:22 SWE (Rec: 12/02/16 21:22 SWE [id number]) Charges for Administration # of IVP Administrations 1 Ondansetron HCl (Zofran Inj) 4 mg IVP 0000,0600,1200,1800 [facility] Last Admin: 12/07/16 17:08 Dose: Not Given Non-Admin Reason: Patient Refused Pantoprazole Sodium (Protonix Inj) 40 mg IVP DAILY [facility] Last Admin: 12/04/16 09:36 Dose: 40 mg IVP Administration Document 12/04/16 09:36 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 (Rec: 12/04/16 09:36 [facility] [id number]) Charges for Administration # of IVP Administrations 1 Sodium Chloride ([place] Nasal [place]) 0 ml NS TID [facility] Last Admin: 12/07/16 17:08 Dose: Not Given Non-Admin Reason: Patient Refused Vancomycin HCl (Vancocin 25 Mg/Ml (Oral Use)) 250 mg PO QID KATTY PRN Reason: Protocol Stop: 12/10/16 10:01 Last Admin: 12/07/16 17:47 Dose: 250 mg - Scribe Statement The provider has reviewed the documentation as recorded by the Azucena Arcos Provider Scribe Attestation: All medical record entries made by the Azucena were at my direction and personally dictated by me. I have reviewed the chart and agree that the record accurately reflects my personal performance of the history, physical exam, medical decision making, and the department course for this patient. I have also personally directed, reviewed, and agree with the discharge instructions and disposition. Disposition/Present on Arrival - Present on Arrival Any Indicators Present on Arrival: No History of DVT/PE: No History of Uncontrolled Diabetes: No Urinary Catheter: No History of Decub. Ulcer: No History Surgical Site Infection Following: None - Disposition Have Diagnosis and Disposition been Completed?: Yes Diagnosis: Gastroenteritis Disposition: HOSPITALIZED Disposition Time: 19:01 Patient Plan: Admission Condition: FAIR
[2016-12-01 18:34] LABS: BASO # 0.02 K/mm3 (0.0-2.0); BASO % 0.4 % (0.0-3.0); EOS % 0.4 % (1.5-5.0); GRAN # 4.6 (1.4-6.5); GRAN % 81.2 % (50.0-68.0); HEMATOCRIT 26.8 % (36.0-48.0); LYMPH # 0.6 (1.2-3.4); LYMPH % 10.4 % (22.0-35.0); MEAN CELL VOLUME 94.4 fl (80.0-105.0); MEAN CORPUSCULAR HEMOGLOBIN 30.6 pg (25.0-35.0); MEAN CORPUSCULAR HGB CONC 32.5 g/dl (31.0-37.0); MEAN PLATELET VOLUME 9.7 fl (7.0-11.0); MONO # 0.4 (0.1-0.6); MONO % 7.6 % (1.0-6.0); RED CELL DISTRIBUTION WIDTH 14.5 % (11.5-14.5); WHITE BLOOD COUNT 5.7 10^3/ul (4.5-11.0)
[2016-12-01 18:42] LABS: ALB/GLOB RATIO 1.3 (1.1-1.8); ALKALINE PHOSPHATASE 65 U/L (38-126); ALT/SGPT 23 U/L (7-56); AST/SGOT 20 U/L (14-36); BILIRUBIN,TOTAL 0.3 mg/dL (0.2-1.3); BLOOD UREA NITROGEN 27 mg/dL (7-21); CALCIUM 8.9 mg/dL (8.4-10.5); CARBON DIOXIDE 26 mmol/L (21-33); CHLORIDE 102 mmol/L (98-107); GFR AFRICAN-AMERICAN > 60; LIPASE 98 U/L (23-300); POTASSIUM 4.6 mmol/L (3.6-5.0); SODIUM 137 mmol/L (132-148); TOTAL PROTEIN 4.9 g/dL (5.8-8.3)
[2016-12-01 18:46] LABS: AMYLASE < 30 U/L (35-125); GLUCOSE,RANDOM 304 mg/dL (70-110)
[2016-12-01] MEDS ORDERED: Sodium Chloride 0.9% 1,000 ML IV STA (18:50)
[2016-12-01] MEDS: Sodium Chloride 0.9% 1,000 ML IV SCH (20:31)
[2016-12-01] MEDS ORDERED: Iohexol 350 MG/100 ML VIAL ONE (21:01)
--- NOTE | 2016-12-01 22:39 | CP.PCM.HP ---
History of Present Illness - History of Present Illness History of Present Illness: Pt. is a 56 year old female undergoing single agent taxotere weekly chemotherapy. Last chemo was last Monday. She developed chills, low grade fever, nausea, vomiting. She also has abdominal pain. Poor PO intake. DM II uncontrolled as she is not able to take lantus insulin recommended by endocrine because of insurance issues. Nausea, vomiting. CT abdomen done in ER. Blood cultures, urine culture pending. Present on Admission - Present on Admission Any Indicators Present on Admission: No Review of Systems - Constitutional Constitutional: As Per HPI - EENT Eyes: As Per HPI - Breasts Breasts: As Per HPI - Cardiovascular Cardiovascular: absent: As Per HPI, Acrocyanosis, Chest Pain, Chest Pain at Rest , Chest Pain with Activity, Claudication, Diaphoresis, Dyspnea, Dyspnea on Exertion, Edema, Irregular Heart Rhythm, Pain Radiating to Arm/Neck/Jaw, Leg Edema, Leg Ulcers, Lightheadedness, Orthopnea, Palpitations, Paroxysmal Nocturnal Dyspnea, Pedal Edema, Radiating Pain, Rapid Heart Rate, Slow Heart Rate, Syncope, Other - Respiratory Respiratory: absent: As Per HPI, Cough, Dyspnea, Hemoptysis, Dyspnea on Exertion , Wheezing, Snoring, Stridor, Pain on Inspiration, Chest Congestion, Excessive Mucous Production, Change in Mucous Color, Pain with Coughing, Other - Gastrointestinal Gastrointestinal: As Per HPI - Genitourinary Genitourinary: absent: As Per HPI, Change in Urinary Stream, Difficulty Urinating, Dysuria, Flank Pain, Hematuria, Pyuria, Nocturia, Urinary Incontinence, Urinary Frequency, Urinary Hesitance, Urinary Urgency, Voiding Freq/Small Amts, Freq UTI, Hx Renal/Bladder Calculi, Hx /Renal Surgery, Bladder Distension, Other - Menstruation Menstruation: absent: As Per HPI, Amenorrhea, Amenorrhea/ Control, Currently Menstual, Cycle <21 Days, Cycle >35 Days, Cycle Variable, Menses 1-7 Days, Menses >/= 8 Days, Menses Variable, Cycle > 4 Weeks Between, No Menses for 6 Months, Heavy Menses, Light Menses, Normal Menses, Spotting Between Cycles , S/P Hysterectomy, Menopausal, Post Menopausal, Premenarche, Abnormal Vaginal Bleeding, Dysmenorrhea, Other - Musculoskeletal Musculoskeletal: As Per HPI - Integumentary Integumentary: absent: As Per HPI, Acne, Alopecia, Bleeding Lesions, Change in Hair, Change in Nails, Change in Pigmentation, Changing Lesions, Dry Skin, Erythema, Furuncle, Hirsutism, Lesions, New Lesions, Non-Healing Lesions, Photosensitivity, Pruritus, Rash, Skin Pain, Skin Ulcer, Sores, Striae, Swelling , Unusual Bruising, Wounds, Jaundice, Other - Psychiatric Psychiatric: absent: As Per HPI, Abnormal Sleep Pattern, Anhedonia, Anxiety, Auditory Hallucinations, Behavioral Changes, Change in Appetite, Change in Libido, Confusion, Depression, Difficulty Concentrating, Hallucinations, Homicidal Ideation, Hopelessness, Irritability, Memory Loss, Mood Swings, Panic Attacks, Paranoia, Suicidal Ideation, Visual Hallucinations, Tactile Hallucinations, Other - Endocrine Endocrine: As Per HPI - Hematologic/Lymphatic Hematologic: As Per HPI Past Patient History - Infectious Disease Hx of Infectious Diseases: None - Past Medical History & Family History Past Medical History?: Yes Past Family History: Reviewed and not pertinent - Past Social History Smoking Status: Never Smoked - CARDIAC Hx Hypertension: Yes - PULMONARY Hx Respiratory Disorders: No - NEUROLOGICAL Hx Neurological Disorder: No - HEENT Hx HEENT Problems: Yes Other/Comment: Wears Glasses - RENAL Hx Chronic Kidney Disease: No - ENDOCRINE/METABOLIC Hx Endocrine Disorders: Yes Hx Diabetes Mellitus Type 1: Yes Hx Diabetes Mellitus Type 2: Yes - HEMATOLOGICAL/ONCOLOGICAL Hx Blood Disorders: Yes Hx Cancer: Yes (left breast 2017- lumpectomy) Hx Chemotherapy: Yes (Last Monday) - INTEGUMENTARY Hx Dermatological Problems: No - MUSCULOSKELETAL/RHEUMATOLOGICAL Hx Musculoskeletal Disorders: No - GASTROINTESTINAL Hx Gastrointestinal Disorders: No - GENITOURINARY/GYNECOLOGICAL Hx Genitourinary Disorders: No - PSYCHIATRIC Hx Psychophysiologic Disorder: No Hx Substance Use: No - SURGICAL HISTORY Hx Breast Biopsy: Yes (left breast lumpectomy due to CA) Hx Section: Yes (Two) Hx Orthopedic Surgery: Yes (Left Knee) Hx Vascular Access Device: Yes (Right Side Port 03/2016) Other/Comment: lump removed left breast and lymph nodes due to CA 03/2016. Left breast CA - ANESTHESIA Hx Anesthesia: Yes Hx Anesthesia Reactions: No Hx Malignant Hyperthermia: No Meds Allergies/Adverse Reactions: Allergies Allergy/AdvReac Type Severity Reaction Status Date / Time morphine Allergy RASH Verified 12/01/16 17:42 Physical Exam - Constitutional Appears: Non-toxic - Head Exam Head Exam: ATRAUMATIC, NORMAL INSPECTION, NORMOCEPHALIC - Eye Exam Eye Exam: Normal appearance Pupil Exam: NORMAL ACCOMODATION - ENT Exam ENT Exam: Mucous Membranes Dry - Neck Exam Neck exam: Positive for: Normal Inspection - Respiratory Exam Respiratory Exam: Clear to Auscultation Bilateral - Cardiovascular Exam Cardiovascular Exam: REGULAR RHYTHM, +S1, +S2 - GI/Abdominal Exam GI & Abdominal Exam: Normal Bowel Sounds, Soft - Extremities Exam Extremities exam: Positive for: normal inspection - Back Exam Back exam: NORMAL INSPECTION - Neurological Exam Neurological exam: CN II-XII Intact, Normal Gait, Oriented x3 - Psychiatric Exam Psychiatric exam: Normal Affect - Skin Skin Exam: Normal Color, Warm Results - Vital Signs Recent Vital Signs: Last Vital Signs Temp 98.4 F 12/01/16 17:36 Pulse 96 H 12/01/16 17:36 Resp 16 12/01/16 17:36 BP 126/60 12/01/16 17:36 Pulse Ox 97 12/01/16 17:36 - Labs Result Diagrams: 12/01/16 18:20 12/01/16 18:20 Labs: Laboratory Results - last 24 hr 12/01/16 22:20 POC Glucose (mg/dL) 250 H Assessment & Plan - Assessment and Plan (Free Text) Assessment: 1. Fever 2. Breast cancer on chemo 3. Abdominal pain - chemo induced colitis 4. Dehydration 5. Anemia - iron deficiency, chemo induced. 6. Nausea, vomiting Plan : admit . IVF 80 cc/hr. Chemo induced nausea, vomiting. Zofran 4 mg IV Q 6 hr. protonix 40 mg IV daily. Zosyn 3.75 gm IV Q 6hrs. ID consult DR. Kumar requested. ACyclovir 400 mg BID for herpes prophylaxis. Mouth care -nystatin mouth wash. Anemia - iron deficiency, chemo induced. Hb/Hct stable. WC normal. - Date & Time Date: 12/01/16 Time: 18:00
--- NOTE | 2016-12-01 23:09 | CT ---
EXAM: CT Abdomen and Pelvis With Intravenous Contrast EXAM DATE/TIME: 12/01/2016 5:57 PM CLINICAL HISTORY: 56 years old, female; Pain; Abdominal pain; Generalized; Prior surgery; Surgery date: 6+ months; Surgery type: 2x cesaean; Patient HX: HX lt breast lumpectomy, lt breast ca, on chemotherapy; Additional info: Abd pain TECHNIQUE: Axial computed tomography images of the abdomen and pelvis with intravenous contrast. All CT scans at this facility use one or more dose reduction techniques, viz.: automated exposure control; ma/kV adjustment per patient size (including targeted exams where dose is matched to indication; i.e. head); or iterative reconstruction technique. Coronal and sagittal reformatted images were created and reviewed. CONTRAST: 100 mL of OMNI 350 administered intravenously. COMPARISON: There are no prior studies for comparison. FINDINGS: Lower thorax: Heart size is normal. There is diffuse increase in interstitial markings at the lung bases. There are asymmetric groundglass opacities. There is atelectasis and scarring. There is a small hiatal hernia. ABDOMEN: Liver: Liver is mildly enlarged. Gallbladder and bile ducts: unremarkable Pancreas: Pancreas is mildly atrophic. Spleen: Spleen is unremarkable. There are multiples splenules in the left upper quadrant. Adrenals: unremarkable Kidneys and ureters: There is a small left upper pole renal cyst. There are additional bilateral low-attenuation renal lesions too small to characterize.There is no pelvocaliectasis or ureterectasis. Stomach and bowel: Stomach is partially distended. Rotation is normal. Small bowel is mildly distended with fluid and air. There is no obstruction. Ileocecal region is unremarkable. Appendix and terminal ileum are unremarkable. Colon is incompletely distended which limits evaluation. There is scattered diverticulosis Appendix: See stomach and bowel PELVIS: Bladder: Bladder is distended. Reproductive: Uterus and adnexal structures are unremarkable. ABDOMEN and PELVIS: Intraperitoneal space: There is no free air or free fluid. Bones/joints: There are degenerative changes in the osseus structures. Soft tissues: There is a small fat containing umbilical hernia. Vasculature: There are vascular calcifications. Lymph nodes: There is shotty para-aortic adenopathy. IMPRESSION: Mild hepatomegaly, no acute solid visceral or bowel abnormality, no CT findings of appendicitis or diverticulitis; possible mild ileus, no obstruction Additional findings as described above.
[2016-12-01] MEDS: Piperacillin/Tazobact 3.375 gm 100 ML IVPB SCH (23:47)
[2016-12-02 01:34] VITALS: BMI 30.9
[2016-12-02] MEDS: Piperacillin/Tazobact 3.375 gm 100 ML IVPB SCH (05:15)
[2016-12-02] MEDS: Sodium Chloride 0.9% 1,000 ML IV SCH ×2 (05:18→21:21)
[2016-12-02 07:03] LABS: URINE BILIRUBIN NEGATIVE (NEGATIVE); URINE BLOOD MODERATE (NEGATIVE); URINE GLUCOSE (UA) NEGATIVE (NEGATIVE); URINE KETONE NEGATIVE (NEGATIVE); URINE LEUKOCYTE ESTERASE NEGATIVE Leu/uL (NEGATIVE); URINE PROTEIN 100 mg/dL (<30 mg/dL); URINE UROBILINOGEN 0.2 E.U./dL (<1 E.U./dL)
[2016-12-02 07:07] LABS: URINE APPEARANCE CLEAR (CLEAR); URINE COLOR LIGHT YELLOW (YELLOW)
[2016-12-02 07:29] LABS: URINE RBC 0 - 2 /hpf (0-2); URINE WBC 0 - 2 /hpf (0-6)
[2016-12-02] MEDS: Insulin Regular 1 UNITS/0.01 ML ML SC SCH ×4 (09:02→21:19)
--- NOTE | 2016-12-02 09:06 | RAD ---
HISTORY: fever COMPARISON: No prior. FINDINGS: LUNGS: No active pulmonary disease. PLEURA: No significant pleural effusion identified, no pneumothorax apparent. CARDIOVASCULAR: Normal heart size. No congestive change. Right subclavian central venous infusion port terminating in the region of the superior vena cava. OSSEOUS STRUCTURES: No significant abnormalities. VISUALIZED UPPER ABDOMEN: Normal. OTHER FINDINGS: None. IMPRESSION: No active disease.
[2016-12-02] MEDS: Meropenem 1g/NS 100mL IVPB 1 GM/100 ML PIGGYBACK IVPB SCH ×3 (09:35→21:47)
[2016-12-02] MEDS: Nystatin 100,000 Units/ml Oral Susp 5 ml UD PO SCH ×5 (09:44→21:20)
--- NOTE | 2016-12-02 13:08 | CP.PCM.PN ---
<Daisy Lowery - Last Filed: 12/02/16 13:06> Subjective - Date & Time of Evaluation Date of Evaluation: 12/02/16 Time of Evaluation: 08:00 - Subjective Subjective: PGY-[address] Hough Patient seen and examined at bedside. No acute distress. Patient states that she continues to have abd pain, unchanged. She states that she has not had BM since yesterday. She states that the medications helped with her n&v. Objective - Vital Signs/Intake and Output Vital Signs (last 24 hours): Temp Pulse Resp BP Pulse Ox 98.5 F 92 H 20 133/70 95 12/02/16 06:00 12/02/16 06:00 12/02/16 06:00 12/02/16 06:00 12/02/16 06:00 Intake and Output: 12/02/16 12/02/16 06:59 18:59 Intake Total 120 Balance 120 - Medications Medications: Current Medications Acyclovir (Zovirax) 400 mg PO BID KATTY PRN Reason: Protocol Last Admin: 12/02/16 09:44 Dose: 400 mg Sodium Chloride (Sodium Chloride 0.9%) 1,000 mls @ 100 mls/hr IV .Q10H KATTY Last Admin: 12/02/16 05:18 Dose: 100 mls/hr Meropenem 1g/NS 100mL IVPB (Meropenem 1g/Ns 100ml Ivpb) 1 gm in 100 mls @ 100 mls/hr IVPB Q8 KATTY PRN Reason: Protocol Stop: 12/11/16 07:29 Last Admin: 12/02/16 09:35 Dose: 100 mls/hr Insulin Human Regular (Humulin R) 0 units SC ACHS KATTY PRN Reason: Protocol Last Admin: 12/02/16 09:02 Dose: 3 units Nystatin (Nystatin Oral Susp) 5 ml PO QID [facility] Last Admin: 12/02/16 09:44 Dose: 5 ml Ondansetron HCl (Zofran Inj) 4 mg IVP Q6H [facility] Last Admin: 12/02/16 09:46 Dose: 4 mg Pantoprazole Sodium (Protonix Inj) 40 mg IVP DAILY [facility] Last Admin: 12/02/16 09:45 Dose: 40 mg - Constitutional Appears: Well, No Acute Distress - Head Exam Head Exam: ATRAUMATIC, NORMAL INSPECTION, NORMOCEPHALIC - Eye Exam Eye Exam: EOMI, Normal appearance - ENT Exam ENT Exam: Mucous Membranes Moist - Respiratory Exam Respiratory Exam: Clear to Ausculation Bilateral, NORMAL BREATHING PATTERN. absent: Decreased Breath Sounds, Rales, Rhonchi, Wheezes, Respiratory Distress, Stridor - Cardiovascular Exam Cardiovascular Exam: REGULAR RHYTHM, +S1, +S2. absent: Tachycardia, Murmur - GI/Abdominal Exam GI & Abdominal Exam: Soft, Tenderness (mild), Normal Bowel Sounds. absent: Distended, Firm, Guarding - Extremities Exam Extremities Exam: Normal Inspection. absent: Pedal Edema, Tenderness - Neurological Exam Neurological Exam: Alert, Awake, Oriented x3 - Skin Skin Exam: Dry, Intact, Normal Color, Warm Assessment and Plan - Assessment and Plan (Free Text) Assessment: 56 yo female with PMH of HTN , diabetes, breast ca currently undergoing chemotherapy presented with abd pain, diarrhea and n&v. Plan: 1. fever - afebrile since admission - blood, urine and stool cultures ordered - c. diff toxin and antigen - acyclovir for herpes prophylaxis, nystatin - meropenum - IVF NS @100cc/hr - ID consulted 2. abd pain with n&v - most likely secondary to chemo induced colitis - CT abd/pelvis showed Mild hepatomegaly, no acute solid visceral or bowel abnormality, no CT findings of appendicitis or diverticulitis; possible mild ileus, no obstruction - zofran prn - protonix - liquid diet - GI consulted 3. breast cancer on chemo - last chemo 6 days ago 4. anemia - multifactorial, iron deficiency an chemo induced - stable - cont to monitor <Jaiden Hough S - Last Filed: 12/02/16 20:12> Objective - Vital Signs/Intake and Output Vital Signs (last 24 hours): Temp Pulse Resp BP Pulse Ox 98.4 F 103 H 18 142/81 96 12/02/16 18:00 12/02/16 16:00 12/02/16 16:00 12/02/16 16:00 12/02/16 16:00 Intake and Output: 12/02/16 12/03/16 18:59 06:59 Intake Total 120 Balance 120 - Medications Medications: Current Medications Acetaminophen (Tylenol 325mg Tab) 650 mg PO Q4H PRN PRN Reason: Fever >100.4 F Last Admin: 12/02/16 17:00 Dose: 650 mg Acyclovir (Zovirax) 400 mg PO BID KATTY PRN Reason: Protocol Last Admin: 12/02/16 17:00 Dose: 400 mg Sodium Chloride (Sodium Chloride 0.9%) 1,000 mls @ 100 mls/hr IV .Q10H KATTY Last Admin: 12/02/16 05:18 Dose: 100 mls/hr Meropenem 1g/NS 100mL IVPB (Meropenem 1g/Ns 100ml Ivpb) 1 gm in 100 mls @ 100 mls/hr IVPB Q8 KATTY PRN Reason: Protocol Stop: 12/11/16 07:29 Last Admin: 12/02/16 15:11 Dose: 100 mls/hr Insulin Human Regular (Humulin R) 0 units SC ACHS KATTY PRN Reason: Protocol Last Admin: 12/02/16 16:59 Dose: 3 units Nystatin (Nystatin Oral Susp) 5 ml PO QID KATTY Last Admin: 12/02/16 17:07 Dose: Not Given Ondansetron HCl (Zofran Inj) 4 mg IVP Q6H KATTY Last Admin: 12/02/16 17:00 Dose: 4 mg Pantoprazole Sodium (Protonix Inj) 40 mg IVP DAILY [facility] Last Admin: 12/02/16 09:45 Dose: 40 mg Assessment and Plan - Assessment and Plan (Free Text) Plan: Pt is seen and examined. Note of medical accountant reviewed and I am in agree with it. Reviewed Labs and medications. Reviewed notes.
--- NOTE | 2016-12-02 14:44 | CON ---
DATE: 12/02/2016 LOCATION: The patient was seen earlier today in 361, bed 2. CHIEF COMPLAINT: Diarrhea times several days. HISTORY OF PRESENT ILLNESS: This is a 56-year-old female with a history of hypertension, diabetes, breast cancer stage III as per the patient, status post chemotherapy, who was admitted to the emergency room complaining of back pain and diarrhea for several days and one episode of vomiting, intermittent cough every now and then. No headaches. No dysuria or frequency. She said she had low-grade fevers and no chills. PAST MEDICAL HISTORY: Significant for stage III breast cancer, diabetes mellitus, and hypertension. PAST SURGICAL HISTORY: Significant for Port-A-Cath placement in 03/2016. The patient is on chemotherapy. The patient also had a left lumpectomy and 2 C-sections. ALLERGIES: THE PATIENT IS ALLERGIC TO MORPHINE. MEDICATIONS AT HOME: Reveals a recent chemotherapy. The patient was on metformin, insulin, and Vasotec. PHYSICAL EXAMINATION: GENERAL: She is in bed, comfortable, answering questions appropriately with a temperature of 99.3 and a heart rate of 100, respiratory rate of 20, blood pressure is 126/60. HEENT: Unremarkable. NECK: Supple. LUNGS: Decreased breath sounds. HEART: Normal S1 and S2. ABDOMEN: Soft, nontender. No rebound or guarding. LABORATORY EXAMINATION: Reveals white count of 5.7, hemoglobin of 8, platelets of 308, and 81% granulocytosis. BUN of 27, creatinine of 1.0, glucose of 304. Urinalysis was also reviewed, the wbc's are pending in the urinalysis and there is protein, but it has not been completed. Cultures are pending. The patient also had a CAT scan of the abdomen and pelvis, which revealed mild hepatomegaly, no acute solid visceral or bowel abnormality. No CAT scan findings of appendicitis or diverticulitis, possible mild ileus, no obstruction. The patient's chest x-ray is pending. The history and physical examination of Dr. Bradley is reviewed. ASSESSMENT AND PLAN: This is a 56-year-old female with hypertension, diabetes, stage III breast cancer, status post chemotherapy who has a Port-A-cath, now comes in with low-grade fevers, tachycardia, severe diarrhea and vomiting, status post chemotherapy. Gastroenteritis in an immunocompromised patient. We will order stool cultures, stool Clostridium difficile. We will start the patient empirically on meropenem, pending blood cultures, urine cultures, and stool cultures, and check on the blood cultures to rule out staph bacteremia from a Port-A-Cath. We will also check on the stool for Clostridium difficile, and we will make further recommendations on the availability of initial culture and response. We will order an HIV test because of her age. The patient has received the dose of vancomycin. We will follow with you. Curt Domingo MD
--- NOTE | 2016-12-02 15:54 | CP.PCM.CON ---
History of Present Illness - History of Present Illness History of Present Illness: Seen and examined at the bedside earlier this morning, the chart was reviewed. Request for GI consult is for enteritis HPI: This is a 56-year-old female who has a history of breast cancer currently undergoing chemotherapy with Dr. brody. Chemotherapy started May 2016. Her last dose of chemotherapy was on Monday she is due for 2 more cycles of chemotherapy. The patient reports ongoing abdominal pain for the past 3 months. She reports that the pain has gotten worse. She admits to having diarrhea 1 week, no reports of any melena or bright red blood per rectum. On admission pateint reports that she was found to have a fever of 103, (not see on [facility] record), no current fevers. She does complain of nausea and had episode of vomiting, no reports of hematemesis. Her last colonoscopy was done at [facility] about 1-2 years ago, does not recall any acute findings or colon polyps. On admission she had a CT scan of abdomen and pelvis,report reviewed. Findings were possible ileus w/no obstruction noted and scattered diverticulosis. Past medical history: Breast cancer currently undergoing chemotherapy, diabetes mellitus type 2, hypertension, anemia Surgical history: Left knee surgery, 2, right-sided port insertion, left breast lumpectomy Family history: Noncontributory Social history: Denies smoking, EtOH or drugs Medication: Reviewed as per LAURA Allergies: Morphine ROS: Systems reviewed with positive finding see HPI Past Patient History - Infectious Disease Hx of Infectious Diseases: None - Past Medical History & Family History Past Medical History?: Yes Past Family History: Reviewed and not pertinent - Past Social History Smoking Status: Never Smoked - CARDIAC Hx Hypertension: Yes - PULMONARY Hx Respiratory Disorders: No - NEUROLOGICAL Hx Neurological Disorder: No - HEENT Hx HEENT Problems: Yes Other/Comment: Wears Glasses - RENAL Hx Chronic Kidney Disease: No - ENDOCRINE/METABOLIC Hx Endocrine Disorders: Yes Hx Diabetes Mellitus Type 1: Yes Hx Diabetes Mellitus Type 2: Yes - HEMATOLOGICAL/ONCOLOGICAL Hx Blood Disorders: Yes Hx Cancer: Yes (left breast 2017- lumpectomy) Hx Chemotherapy: Yes (Last Monday) - INTEGUMENTARY Hx Dermatological Problems: No - MUSCULOSKELETAL/RHEUMATOLOGICAL Hx Musculoskeletal Disorders: No - GASTROINTESTINAL Hx Gastrointestinal Disorders: No - GENITOURINARY/GYNECOLOGICAL Hx Genitourinary Disorders: No - PSYCHIATRIC Hx Psychophysiologic Disorder: No Hx Substance Use: No - SURGICAL HISTORY Hx Breast Biopsy: Yes (left breast lumpectomy due to CA) Hx Section: Yes (Two) Hx Orthopedic Surgery: Yes (Left Knee) Hx Vascular Access Device: Yes (Right Side Port 03/2016) Other/Comment: lump removed left breast and lymph nodes due to CA 03/2016. Left breast CA - ANESTHESIA Hx Anesthesia: Yes Hx Anesthesia Reactions: No Hx Malignant Hyperthermia: No Meds Allergies/Adverse Reactions: Allergies Allergy/AdvReac Type Severity Reaction Status Date / Time morphine Allergy RASH Verified 12/01/16 17:42 - Medications Medications: Current Medications Acyclovir (Zovirax) 400 mg PO BID KATTY PRN Reason: Protocol Last Admin: 12/02/16 09:44 Dose: 400 mg Sodium Chloride (Sodium Chloride 0.9%) 1,000 mls @ 100 mls/hr IV .Q10H [facility] Last Admin: 12/02/16 05:18 Dose: 100 mls/hr Meropenem 1g/NS 100mL IVPB (Meropenem 1g/Ns 100ml Ivpb) 1 gm in 100 mls @ 100 mls/hr IVPB Q8 KATTY PRN Reason: Protocol Stop: 12/11/16 07:29 Last Admin: 12/02/16 15:11 Dose: 100 mls/hr Insulin Human Regular (Humulin R) 0 units SC ACHS KATTY PRN Reason: Protocol Last Admin: 12/02/16 13:10 Dose: 5 units Nystatin (Nystatin Oral Susp) 5 ml PO QID [facility] Last Admin: 12/02/16 15:11 Dose: 5 ml Ondansetron HCl (Zofran Inj) 4 mg IVP Q6H [facility] Last Admin: 12/02/16 09:46 Dose: 4 mg Pantoprazole Sodium (Protonix Inj) 40 mg IVP DAILY [facility] Last Admin: 12/02/16 09:45 Dose: 40 mg Physical Exam - Constitutional Appears: No Acute Distress - Head Exam Head Exam: NORMOCEPHALIC - Eye Exam Eye Exam: Normal appearance. absent: Scleral icterus - ENT Exam ENT Exam: Mucous Membranes Moist - Neck Exam Neck exam: Positive for: Normal Inspection - Respiratory Exam Respiratory Exam: NORMAL BREATHING PATTERN. absent: Respiratory Distress - Cardiovascular Exam Cardiovascular Exam: +S1, +S2 - GI/Abdominal Exam GI & Abdominal Exam: Normal Bowel Sounds, Soft, Tenderness. absent: Guarding, Rebound - Extremities Exam Extremities exam: Positive for: pedal edema, pedal pulses present. Negative for : calf tenderness - Neurological Exam Neurological exam: Alert, Oriented x3 - Skin Skin Exam: Dry, Warm Results - Vital Signs Recent Vital Signs: Last Vital Signs Temp 98.5 F 12/02/16 06:00 Pulse 92 H 12/02/16 06:00 Resp 20 12/02/16 06:00 BP 133/70 12/02/16 06:00 Pulse Ox 95 12/02/16 06:00 - Labs Result Diagrams: 12/01/16 18:20 12/01/16 18:20 Labs: Laboratory Results - last 24 hr 12/01/16 12/01/16 12/02/16 22:20 22:51 06:45 POC Glucose (mg/dL) 250 H Lactic Acid 1.2 Urine Color Light yellow Urine Appearance Clear Urine pH 6.0 Ur Specific [place] 1.020 Urine Protein 100 H Urine Glucose (UA) Negative Urine Ketones Negative Urine Blood Moderate H Urine Nitrate Negative Urine Bilirubin Negative Urine Urobilinogen 0.2 Ur Leukocyte Esterase Negative Urine RBC 0 - 2 Urine WBC 0 - 2 12/02/16 12/02/16 08:55 11:42 POC Glucose (mg/dL) 211 H 274 H Lactic Acid Urine Color Urine Appearance Urine pH Ur Specific [place] Urine Protein Urine Glucose (UA) Urine Ketones Urine Blood Urine Nitrate Urine Bilirubin Urine Urobilinogen Ur Leukocyte Esterase Urine RBC Urine WBC Assessment & Plan - Assessment and Plan (Free Text) Assessment: Assessment: Fever Breast cancer currently receiving chemotherapy Abdominal pain, possible ileus, no obstruction Diverticulosis Diarrhea may be secondary to chemotherapy Anemia History of diabetes mellitus type 2 Hypertension Plan: Pending stool studies for C. difficile, culture Continue clear liquid diet IV antibiotics as per ID On acyclovir Continue PPI DVT prophylaxis Zofran when necessary Thank you for this consult and for allowing us to participate in your patient's care, further recommendations based upon clinical course. Seen and discussed with Dr. Santacruz
[2016-12-03] MEDS: Meropenem 1g/NS 100mL IVPB 1 GM/100 ML PIGGYBACK IVPB SCH ×3 (05:32→21:56)
[2016-12-03] MEDS: Insulin Regular 1 UNITS/0.01 ML ML SC SCH ×4 (08:35→21:57)
[2016-12-03] MEDS: Nystatin 100,000 Units/ml Oral Susp 5 ml UD PO SCH ×5 (09:16→21:57)
[2016-12-03] MEDS: Sodium Chloride 0.9% 1,000 ML IV SCH ×3 (09:17→21:57)
[2016-12-03] MEDS: Vancomycin 25 MG/ML PO SCH ×4 (11:18→22:00)
--- NOTE | 2016-12-03 11:26 | PN ---
DATE: 12/03/2016 SUBJECTIVE: The patient was seen earlier in #[id number]. No fevers and no chills. No diarrhea. She has improved. OBJECTIVE: VITAL SIGNS: On exam, temperature is 98, T-max is 100.9, respiratory rate of 22 and heart rate of 109. EXAMINATION OF HEENT: Unremarkable. NECK: Supple. LUNGS: Have decreased breath sounds. HEART EXAM: Normal S1 and S2. ABDOMINAL EXAMINATION: Soft. LABORATORY EXAMINATION: Reveals a white count of 5.7, hemoglobin of 8 and platelets of 308. Chemistries are noted and the patient has BUN of 27 and creatinine of 1.0. Urinalysis is noted, and stool for occult blood is negative. Microbiology reveals the blood cultures are no growth at 24 hours, urine cultures are no growth. Her stool C. diff antigen is positive. Her toxin is negative. The stool cultures are pending. is pending and the patient is currently on meropenem. ASSESSMENT AND PLAN: A 56-year-old female with hypertension; diabetes; stage III breast cancer, status post chemotherapy with Port-A-Cath, admitted with low-grade fevers, tachycardia and severe diarrhea and vomiting, status post chemotherapy, gastroenteritis and pseudomembranous colitis in an immunocompromised patient. Awaiting for the stool cultures. If the stool cultures are negative, we will discontinue the meropenem and complete a short course of p.o. vancomycin. We will start p.o. vancomycin, place the patient on contact isolation and we will follow with you. Case discussed with PMD. Curt Domingo MD
--- NOTE | 2016-12-04 00:28 | PN ---
DATE: 12/03/2016 SUBJECTIVE: This patient was seen and evaluated earlier today. I discussed with the nursing staff. The patient is feeling better now. PHYSICAL EXAMINATION: VITAL SIGNS: T-max was 100.9, pulse 100, blood pressure is 146/77, respiration is 22 and O2 saturation is 92%. HEENT: Atraumatic. Anicteric. NECK: Supple. HEART: S1 and S2 heart. LUNGS: Bilateral air entry present. ABDOMEN: Soft. There is no significant tenderness now. EXTREMITIES: No edema. No cyanosis. LABORATORY DATA: There are no recent labs. IMPRESSION: This is a 56-year-old patient with hypertension, diabetes mellitus, stage III breast cancer, status post chemotherapy, admitted with fever, diarrhea and vomiting, was found to have stool for Clostridium difficile present. On p.o. vancomycin antibiotics, meropenem has been discontinued. Tolerating the diet. Thank you very much for allowing us to participate in the care of the patient. We will continue to closely follow up her care and suggest further management based on the clinical course. Felicita Santacruz MD
--- NOTE | 2016-12-04 05:59 | PN ---
SUBJECTIVE: The patient has no complaints of any chest pain. No shortness of breath. She says her abdominal pain is improved. She is tolerating her diet. PHYSICAL EXAMINATION: VITAL SIGNS: Temperature is 100.2, pulse of 109, blood pressure is 146/77, respirations 22. GENERAL: The patient is lying in bed, flat, comfortable. HEENT: No oral lesion. Anicteric sclerae. Moist mucosa. NECK: No JVD, adenopathy, or thyromegaly. CARDIOVASCULAR: S1 and S2, regular. No murmurs, rubs, or gallops. LUNGS: Clear to auscultation bilaterally. No wheeze, rales, or rhonchi. ABDOMEN: Bowel sounds are positive, soft, nontender and nondistended. EXTREMITIES: No cyanosis, clubbing or edema. LABORATORY DATA: White count of 5.7, hemiglobin of 8.7, creatinine is 1.0. Blood cultures and urine cultures have been negative. The patient's C. diff antigen is positive and C. diff toxin is negative. ASSESSMENT: 1. Abdominal pain secondary to gastroenteritis. 2. Hypertension. 3. Diabetes type 2. 4. Stage III breast cancer, status post chemotherapy. 5. Port-A-Cath. PLAN: The patient has possible C. diff as well and has been started on p.o. vancomycin. The patient is on meropenem for antibiotics. She is going to continue with Protonix. She is on acyclovir. She is on a liquid diet. Clinically, she is improving. I did speak to Dr. Santacruz and Dr. Domingo regarding the case. Jaiden Hough MD
[2016-12-04] MEDS: Meropenem 1g/NS 100mL IVPB 1 GM/100 ML PIGGYBACK IVPB SCH ×3 (06:12→22:23)
[2016-12-04 07:53] LABS: BASO # 0.01 K/mm3 (0.0-2.0); BASO % 0.2 % (0.0-3.0); EOS % 0.4 % (1.5-5.0); GRAN # 4.46 (1.4-6.5); GRAN % 82.3 % (50.0-68.0); HEMATOCRIT 24.8 % (36.0-48.0); LYMPH # 0.6 (1.2-3.4); LYMPH % 10.4 % (22.0-35.0); MEAN CELL VOLUME 92.9 fl (80.0-105.0); MEAN CORPUSCULAR HEMOGLOBIN 30.3 pg (25.0-35.0); MEAN CORPUSCULAR HGB CONC 32.7 g/dl (31.0-37.0); MEAN PLATELET VOLUME 9.3 fl (7.0-11.0); MONO # 0.4 (0.1-0.6); MONO % 6.7 % (1.0-6.0); RED CELL DISTRIBUTION WIDTH 14.1 % (11.5-14.5); WHITE BLOOD COUNT 5.4 10^3/ul (4.5-11.0)
[2016-12-04 07:55] LABS: ALB/GLOB RATIO 1.2 (1.1-1.8); ALKALINE PHOSPHATASE 81 U/L (38-126); ALT/SGPT 36 U/L (7-56); AST/SGOT 26 U/L (14-36); BILIRUBIN,TOTAL 0.4 mg/dL (0.2-1.3); BLOOD UREA NITROGEN 7 mg/dL (7-21); CALCIUM 8.1 mg/dL (8.4-10.5); CARBON DIOXIDE 28 mmol/L (21-33); CHLORIDE 106 mmol/L (95-110); GFR AFRICAN-AMERICAN > 60; GLUCOSE,RANDOM 156 mg/dL (70-110); POTASSIUM 3.4 mmol/L (3.6-5.0); SODIUM 138 mmol/L (132-148); TOTAL PROTEIN 5.3 g/dL (5.8-8.3)
[2016-12-04] MEDS: Insulin Regular 1 UNITS/0.01 ML ML SC SCH ×4 (08:34→22:23)
[2016-12-04] MEDS: Vancomycin 25 MG/ML PO SCH ×4 (09:38→22:24)
[2016-12-04] MEDS: Nystatin 100,000 Units/ml Oral Susp 5 ml UD PO SCH ×4 (12:04→22:23)
--- NOTE | 2016-12-04 13:06 | PN ---
DATE: 12/04/2016 SUBJECTIVE: The patient has no complaints of any chest pain. She had no shortness of breath. She states abdominal pain is better. PHYSICAL EXAMINATION: VITAL SIGNS: Temperature is 100.4, pulse of 105, blood pressure 150/83 and respirations 20. LABORATORY DATA: White count of 5.4, hemoglobin 8.1, potassium 3.4 and creatinine is 0.8. GENERAL: The patient is lying in bed, flat, comfortable. HEENT: No oral lesion. Anicteric sclerae. Moist mucosa. NECK: No JVD, adenopathy, or thyromegaly. CARDIOVASCULAR: S1 and S2, regular. No murmurs, rubs, or gallops. LUNGS: Clear to auscultation bilaterally. No wheeze, rales, or rhonchi. ABDOMEN: Bowel sounds are positive, soft, nontender and nondistended. EXTREMITIES: No cyanosis, clubbing or edema. ASSESSMENT: 1. Abdominal pain secondary to gastroenteritis with possible Clostridium difficile. 2. Hypertension. 3. Diabetes type 2. 4. Stage III breast cancer, status post chemotherapy. 5. Port-A-Cath. PLAN: The patient is currently on vancomycin. This will be continued. I will discontinue the patient's IV fluids. I will discontinue the patient's Protonix. The patient is on meropenem for antibiotics and is on Zofran as needed. The patient is going to have repeat blood work done again tomorrow. She is feeling better. Jaiden Hough MD [facility]
--- NOTE | 2016-12-04 13:47 | PN ---
DATE: 12/04/2016 SUBJECTIVE: The patient is in bed. She has fevers last night. She stated that she did not have any diarrhea. PHYSICAL EXAMINATION: VITAL SIGNS: The patient has a temperature of 100.4, heart rate of 105, respiratory rate of 20, blood pressure of 150/80. HEENT: Unremarkable. NECK: Supple. LUNGS: Decreased breath sounds. HEART: Normal S1 and S2. ABDOMEN: Soft, nontender. No rebound or guarding. LABORATORY DATA: Reveals a white of 5.4, hemoglobin of 8, platelets of 298 with 82% granulocytosis. Chemistries reveal a BUN of 7, creatinine of 0.8. Urinalysis is noted. Stool occult blood is negative. HIV is nonreactive. Microbiology reveals urine cultures are negative, blood cultures are negative, stool C. diff is positive. REVIEW OF ORDERS: Reveals the patient to be on meropenem. Stool cultures are pending. The patient is also on p.o. vancomycin. The patient's CAT scan of the abdomen and pelvis is noted. Dr. Hough's note from yesterday was reviewed and Dr. Santacruz's note is also reviewed. Dr. Santacruz feels the patient's symptoms were all due to pseudomembranous colitis. ASSESSMENT AND PLAN: This is a 56-year-old female with hypertension, diabetes, stage III breast cancer, status post chemotherapy with a Port-A-Cath admitted with fever, tachycardia, severe diarrhea, vomiting, status post chemotherapy, gastroenteritis, pseudomembranous colitis in an immunocompromised patient, still on meropenem and p.o. vancomycin, waiting for stool cultures. We will repeat blood cultures. I am not convinced that this fever and the abdominal cramps are all just from Clostridium difficile. We will make further decision based on the stool cultures, and this patient was immunocompromised. Curt Domingo MD
--- NOTE | 2016-12-05 01:14 | PN ---
DATE: 12/04/2016 SUBJECTIVE: This patient was seen and evaluated earlier. The patient feels much better, tolerating the diet; however, she is still spiking temperature. Her T-max was 100.4, pulse is 105. PHYSICAL EXAMINATION GENERAL: The patient is comfortable, not in distress. VITAL SIGNS: T-max 100.4, pulse 105, blood pressure 150/83. HEENT: Atraumatic. Anicteric. NECK: Supple. HEART: S1 and S2 heard. LUNGS: Bilateral air entry present. ABDOMEN: Soft. There was no significant tenderness at present noticed. EXTREMITIES: No edema, no cyanosis. NEUROLOGIC: Alert and oriented. Moves all extremities. LABORATORY DATA: Hemoglobin has come down to 8.1, hematocrit 24.8, WBC 5.4, platelets 298. Chemistry showed potassium 3.4, glucose 156, albumin 2.8. Stool for occult blood negative. IMPRESSION: This 56-year-old patient with hypertension, diabetes mellitus, stage III breast cancer, status post chemo, admitted with fever, diarrhea and vomiting. The patient was found to have Clostridium difficile positive. She is on p.o. vancomycin. The patient has been also on meropenem, which has been still continued. I did review ID consult note. I do agree with ID that the temperature and overall clinical picture does not correlate well with only C. difficile alone. There is a possibility that infectious enteritis to be considered. However, the stool for culture has been negative. The plan is to continue the antibiotics as per ID, is on meropenem and also continue the p.o. vancomycin. The patient has been presently on contact precautions. We will continue to closely follow up her care and suggest further management based on the clinical course. Felicita Santacruz MD
[2016-12-05] MEDS: Meropenem 1g/NS 100mL IVPB 1 GM/100 ML PIGGYBACK IVPB SCH ×3 (05:28→22:12)
[2016-12-05 05:50] LABS: HEMATOCRIT 24.5 % (36.0-48.0); MEAN CELL VOLUME 92.1 fl (80.0-105.0); MEAN CORPUSCULAR HEMOGLOBIN 30.5 pg (25.0-35.0); MEAN CORPUSCULAR HGB CONC 33.1 g/dl (31.0-37.0); RED CELL DISTRIBUTION WIDTH 14.2 % (11.5-14.5); WHITE BLOOD COUNT 6.4 10^3/ul (4.5-11.0)
[2016-12-05 06:51] LABS: ALB/GLOB RATIO 1.1 (1.1-1.8); ALKALINE PHOSPHATASE 71 U/L (38-126); ALT/SGPT 25 U/L (7-56); AST/SGOT 23 U/L (14-36); BILIRUBIN,TOTAL 0.2 mg/dL (0.2-1.3); BLOOD UREA NITROGEN 7 mg/dL (7-21); CALCIUM 8.1 mg/dL (8.4-10.5); CARBON DIOXIDE 30 mmol/L (21-33); CHLORIDE 106 mmol/L (98-107); GFR AFRICAN-AMERICAN > 60; GLUCOSE,RANDOM 161 mg/dL (70-110); MAGNESIUM 1.4 mg/dL (1.7-2.2); POTASSIUM 3.3 mmol/L (3.6-5.0); SODIUM 141 mmol/L (132-148); TOTAL PROTEIN 5.1 g/dL (5.8-8.3)
[2016-12-05] MEDS: Insulin Regular 1 UNITS/0.01 ML ML SC SCH ×4 (08:58→22:12)
--- NOTE | 2016-12-05 09:24 | US ---
HISTORY: r/o gallstones COMPARISON: None. TECHNIQUE: Sonographic evaluation of the abdomen. FINDINGS: LIVER: Measures 15.2 cm. Normal echogenicity of the liver parenchyma. No mass. No intrahepatic bile duct dilatation. GALLBLADDER: No gallstones, wall thickening or pericholecystic fluid. The sonographic Duke's sign is negative. COMMON BILE DUCT: Measures 4.1 mm. No stones. No dilatation. PANCREAS: Unremarkable as visualized. No mass. No ductal dilatation. RIGHT KIDNEY: Measures 12.3cm. Normal echogenicity. No calculus, mass, or hydronephrosis. LEFT KIDNEY: Measures 13.0cm. Normal echogenicity. No calculus, mass, or hydronephrosis. SPLEEN: Normal in size and contour. No mass. AORTA: No aneurysmal dilatation. IVC: Unremarkable. OTHER FINDINGS: None. IMPRESSION: No cholelithiasis or biliary dilatation.
[2016-12-05] MEDS: Nystatin 100,000 Units/ml Oral Susp 5 ml UD PO SCH ×4 (09:57→22:13)
--- NOTE | 2016-12-05 10:56 | RAD ---
PROCEDURE: Sinus disease HISTORY: sinus pressure COMPARISON: TECHNIQUE: Four views FINDINGS: The sinuses are well aerated. There is no fluid or mucosal thickening IMPRESSION: Negative study
[2016-12-05] MEDS ORDERED: Magnesium Sulfate 1 gm in D5W 1 GM/100 ML BAG IVPB ONE (11:50)
[2016-12-05] MEDS: Vancomycin 25 MG/ML PO SCH ×4 (12:54→22:13)
--- NOTE | 2016-12-05 13:45 | CP.PCM.PN ---
<Flora Lynch - Last Filed: 12/05/16 13:44> Subjective - Date & Time of Evaluation Date of Evaluation: 12/05/16 Time of Evaluation: 10:35 - Subjective Subjective: Seen and examined at the bedside earlier this morning, the chart was reviewed. Patient reports some mild loose stool, she did complain of some nausea on my visit but no vomiting. Denies shortness of breath or chest pain and no reports of overt GI bleed. Objective - Vital Signs/Intake and Output Vital Signs (last 24 hours): Temp Pulse Resp BP Pulse Ox 100.7 F H 109 H 21 152/77 H 94 L 12/05/16 08:14 12/05/16 08:14 12/05/16 08:14 12/05/16 08:14 12/05/16 08:14 Intake and Output: 12/05/16 12/05/16 06:59 18:59 Intake Total 540 Balance 540 - Medications Medications: Current Medications Acetaminophen (Tylenol 325mg Tab) 650 mg PO Q4H PRN PRN Reason: Fever >100.4 F Last Admin: 12/04/16 17:15 Dose: 650 mg Acyclovir (Zovirax) 400 mg PO BID KATTY PRN Reason: Protocol Last Admin: 12/05/16 09:57 Dose: 400 mg Meropenem 1g/NS 100mL IVPB (Meropenem 1g/Ns 100ml Ivpb) 1 gm in 100 mls @ 100 mls/hr IVPB Q8 KATTY PRN Reason: Protocol Stop: 12/11/16 07:29 Last Admin: 12/05/16 05:28 Dose: 100 mls/hr Potassium Chloride (Potassium Chloride 10 Meq/100 Ml) 10 meq in 100 mls @ 100 mls/hr IVPB Q2H KATTY Stop: 12/05/16 14:59 Insulin Human Regular (Humulin R) 0 units SC ACHS AKTTY PRN Reason: Protocol Last Admin: 12/05/16 08:58 Dose: 3 units Nystatin (Nystatin Oral Susp) 5 ml PO QID [facility] Last Admin: 12/05/16 09:57 Dose: 5 ml Ondansetron HCl (Zofran Inj) 4 mg IVP 0000,0600,1200,1800 [facility] Last Admin: 12/05/16 12:54 Dose: 4 mg Sodium Chloride ([place] Nasal [place]) 0 ml NS TID KATTY Vancomycin HCl (Vancocin 25 Mg/Ml (Oral Use)) 250 mg PO QID KATTY PRN Reason: Protocol Stop: 12/10/16 10:01 Last Admin: 12/05/16 12:54 Dose: 250 mg - Labs Labs: 12/05/16 05:40 12/05/16 05:40 - Constitutional Appears: No Acute Distress - Eye Exam Eye Exam: Normal appearance. absent: Scleral icterus - ENT Exam ENT Exam: Mucous Membranes Moist - Neck Exam Neck Exam: Normal Inspection - Respiratory Exam Respiratory Exam: NORMAL BREATHING PATTERN. absent: Respiratory Distress - Cardiovascular Exam Cardiovascular Exam: +S1, +S2 - GI/Abdominal Exam GI & Abdominal Exam: Normal Bowel Sounds. absent: Distended, Guarding, Tenderness, Organomegaly, Rebound - Extremities Exam Extremities Exam: Normal Capillary Refill. absent: Calf Tenderness - Neurological Exam Neurological Exam: Alert, Awake, Oriented x3 - Skin Skin Exam: Dry, Warm Assessment and Plan - Assessment and Plan (Free Text) Assessment: Assessment: C. difficile colitis Fever Breast cancer currently receiving chemotherapy Abdominal pain, possible ileus, no obstruction Diverticulosis Diarrhea may be secondary to chemotherapy Anemia History of diabetes mellitus type 2 Hypertension Plan: continue diet as tolerated On oral vancomycin IV antibiotics as per ID On acyclovir Continue PPI DVT prophylaxis Zofran when necessary As per oncology Seen and discussed with Dr. Santacruz <Felicita Santacruz V - Last Filed: 12/06/16 00:04> Objective - Vital Signs/Intake and Output Vital Signs (last 24 hours): Temp Pulse Resp BP Pulse Ox 100.4 F H 95 H 18 132/68 91 L 12/05/16 16:00 12/05/16 16:00 12/05/16 16:00 12/05/16 16:00 12/05/16 16:00 Intake and Output: 12/05/16 12/06/16 18:59 06:59 Intake Total 840 780 Balance 840 780 - Medications Medications: Current Medications Acetaminophen (Tylenol 325mg Tab) 650 mg PO Q4H PRN PRN Reason: Fever >100.4 F Last Admin: 12/05/16 19:09 Dose: 650 mg Acyclovir (Zovirax) 400 mg PO BID KATYT PRN Reason: Protocol Last Admin: 12/05/16 17:51 Dose: 400 mg Meropenem 1g/NS 100mL IVPB (Meropenem 1g/Ns 100ml Ivpb) 1 gm in 100 mls @ 100 mls/hr IVPB Q8 KATTY PRN Reason: Protocol Stop: 12/11/16 07:29 Last Admin: 12/05/16 22:12 Dose: 100 mls/hr Insulin Human Regular (Humulin R) 0 units SC ACHS KATTY PRN Reason: Protocol Last Admin: 12/05/16 22:12 Dose: Not Given Nystatin (Nystatin Oral Susp) 5 ml PO QID KTATY Last Admin: 12/05/16 22:13 Dose: Not Given Ondansetron HCl (Zofran Inj) 4 mg IVP 0000,0600,1200,1800 [facility] Last Admin: 12/05/16 17:51 Dose: 4 mg Sodium Chloride ([place] Nasal [place]) 0 ml NS TID KATTY Last Admin: 12/05/16 17:50 Dose: Not Given Vancomycin HCl (Vancocin 25 Mg/Ml (Oral Use)) 250 mg PO QID KATTY PRN Reason: Protocol Stop: 12/10/16 10:01 Last Admin: 12/05/16 22:13 Dose: 250 mg - Labs Labs: 12/05/16 05:40 12/05/16 05:40 Attending/Attestation - Attestation I have personally seen and examined this patient.: Yes I have fully participated in the care of the patient.: Yes I have reviewed all pertinent clinical information, including history, physical exam and plan: Yes Notes (Text): This is an addendum to GI progress report dictated by Flora Lynch APN.The patient was seen and examined earlier. Medical records, lab studies, imagings were reviewed. Last 24 hours events reviewed. Agreed with the above treatment plan as outlined in Flora Lynch APN's notes the with the addition of the following that has improved examination abdomen soft nontender continue antibiotics as per ID 12/05/16 23:57
--- NOTE | 2016-12-05 19:22 | CP.PCM.PN ---
Subjective - Date & Time of Evaluation Date of Evaluation: 12/05/16 Time of Evaluation: 17:05 - Subjective Subjective: Patient is still having intermittent low grade fevers, diarrhea has resolved, but still with occasional crampy abdominal pain. Objective - Vital Signs/Intake and Output Vital Signs (last 24 hours): Temp Pulse Resp BP Pulse Ox 100.7 F H 109 H 21 152/77 H 94 L 12/05/16 08:14 12/05/16 08:14 12/05/16 08:14 12/05/16 08:14 12/05/16 08:14 Intake and Output: 12/05/16 12/05/16 06:59 18:59 Intake Total 540 840 Balance 540 840 - Medications Medications: Current Medications Acetaminophen (Tylenol 325mg Tab) 650 mg PO Q4H PRN PRN Reason: Fever >100.4 F Last Admin: 12/04/16 17:15 Dose: 650 mg Acyclovir (Zovirax) 400 mg PO BID KATTY PRN Reason: Protocol Last Admin: 12/05/16 09:57 Dose: 400 mg Meropenem 1g/NS 100mL IVPB (Meropenem 1g/Ns 100ml Ivpb) 1 gm in 100 mls @ 100 mls/hr IVPB Q8 KATTY PRN Reason: Protocol Stop: 12/11/16 07:29 Last Admin: 12/05/16 05:28 Dose: 100 mls/hr Insulin Human Regular (Humulin R) 0 units SC ACHS KATTY PRN Reason: Protocol Last Admin: 12/05/16 08:58 Dose: 3 units Nystatin (Nystatin Oral Susp) 5 ml PO QID [facility] Last Admin: 12/05/16 15:43 Dose: Not Given Ondansetron HCl (Zofran Inj) 4 mg IVP 0000,0600,1200,1800 [facility] Last Admin: 12/05/16 12:54 Dose: 4 mg Sodium Chloride ([place] Nasal [place]) 0 ml NS TID KATTY Last Admin: 12/05/16 15:44 Dose: Not Given Vancomycin HCl (Vancocin 25 Mg/Ml (Oral Use)) 250 mg PO QID KATTY PRN Reason: Protocol Stop: 12/10/16 10:01 Last Admin: 12/05/16 12:54 Dose: 250 mg - Labs Labs: 12/05/16 05:40 12/05/16 05:40 - Constitutional Appears: Chronically Ill - Head Exam Head Exam: NORMAL INSPECTION - Neck Exam Neck Exam: absent: Meningismus - Respiratory Exam Respiratory Exam: Decreased Breath Sounds - Cardiovascular Exam Cardiovascular Exam: +S1, +S2 - GI/Abdominal Exam GI & Abdominal Exam: Soft. absent: Tenderness Assessment and Plan - Assessment and Plan (Free Text) Plan: Assessment Severe diarrhea, R/O enterocolitis, on top pseudomembranous colitis history of periodontal infection on the left incisor tooth of the left maxillary area, with associated left sided facial cellulitis HTN DM stage 3 left breast cancer S/P surgery in 2016 S/P port placement 2016 , on chemotherapy Plan continue Merrem and PO Vancomycin; awaiting stool studies; repeat cx from yesterday are still negative will monitor clinically and trend fever curve
--- NOTE | 2016-12-05 22:43 | CP.PCM.PN ---
Subjective - Date & Time of Evaluation Date of Evaluation: 12/05/16 Time of Evaluation: 07:00 - Subjective Subjective: She is still having low grade fever. C-diff positive. complaining of nasal discharge, post nasal drip. Blood counts stable. Objective - Vital Signs/Intake and Output Vital Signs (last 24 hours): Temp Pulse Resp BP Pulse Ox 100.4 F H 95 H 18 132/68 91 L 12/05/16 16:00 12/05/16 16:00 12/05/16 16:00 12/05/16 16:00 12/05/16 16:00 Intake and Output: 12/05/16 12/06/16 18:59 06:59 Intake Total 840 780 Balance 840 780 - Medications Medications: Current Medications Acetaminophen (Tylenol 325mg Tab) 650 mg PO Q4H PRN PRN Reason: Fever >100.4 F Last Admin: 12/05/16 19:09 Dose: 650 mg Acyclovir (Zovirax) 400 mg PO BID KATTY PRN Reason: Protocol Last Admin: 12/05/16 17:51 Dose: 400 mg Meropenem 1g/NS 100mL IVPB (Meropenem 1g/Ns 100ml Ivpb) 1 gm in 100 mls @ 100 mls/hr IVPB Q8 KATTY PRN Reason: Protocol Stop: 12/11/16 07:29 Last Admin: 12/05/16 22:12 Dose: 100 mls/hr Insulin Human Regular (Humulin R) 0 units SC ACHS KATTY PRN Reason: Protocol Last Admin: 12/05/16 22:12 Dose: Not Given Nystatin (Nystatin Oral Susp) 5 ml PO QID KATTY Last Admin: 12/05/16 22:13 Dose: Not Given Ondansetron HCl (Zofran Inj) 4 mg IVP 0000,0600,1200,1800 [facility] Last Admin: 12/05/16 17:51 Dose: 4 mg Sodium Chloride ([place] Nasal [place]) 0 ml NS TID KATTY Last Admin: 12/05/16 17:50 Dose: Not Given Vancomycin HCl (Vancocin 25 Mg/Ml (Oral Use)) 250 mg PO QID KATTY PRN Reason: Protocol Stop: 12/10/16 10:01 Last Admin: 12/05/16 22:13 Dose: 250 mg - Labs Labs: 12/05/16 05:40 12/05/16 05:40 - Constitutional Appears: Non-toxic - Head Exam Head Exam: ATRAUMATIC, NORMAL INSPECTION, NORMOCEPHALIC - Eye Exam Eye Exam: Normal appearance Pupil Exam: NORMAL ACCOMODATION - ENT Exam ENT Exam: Mucous Membranes Moist, Normal Exam - Respiratory Exam Respiratory Exam: Clear to Ausculation Bilateral, NORMAL BREATHING PATTERN - Cardiovascular Exam Cardiovascular Exam: REGULAR RHYTHM, +S1, +S2 - GI/Abdominal Exam GI & Abdominal Exam: Soft, Normal Bowel Sounds - Extremities Exam Extremities Exam: Normal Inspection - Back Exam Back Exam: NORMAL INSPECTION - Neurological Exam Neurological Exam: Alert, Awake, Oriented x3 - Psychiatric Exam Psychiatric exam: Normal Affect - Skin Skin Exam: Normal Color, Warm Assessment and Plan - Assessment and Plan (Free Text) Assessment: 1. Breast cancer, on chemotherapy. 2. C-diff colitis 3. fever 4. anemia Plan; X ray sinuses ordered stat. No active disease. Low grade fever might be due to c-diff colitis. Cultures negative. on vanco, meropenem. Hb/Hct stable. discharge planning.
[2016-12-06] MEDS: Insulin Regular 1 UNITS/0.01 ML ML SC SCH ×4 (08:25→22:31)
[2016-12-06] MEDS: Vancomycin 25 MG/ML PO SCH ×4 (09:42→22:37)
[2016-12-06] MEDS: Nystatin 100,000 Units/ml Oral Susp 5 ml UD PO SCH ×4 (09:43→22:32)
--- NOTE | 2016-12-06 11:28 | CP.PCM.PN ---
Subjective - Date & Time of Evaluation Date of Evaluation: 12/06/16 Time of Evaluation: 10:30 - Subjective Subjective: Patient is still having fevers and chills intermittently overnight, no more diarrhea, no abdominal pain overnight, no vomiting. Objective - Vital Signs/Intake and Output Vital Signs (last 24 hours): Temp Pulse Resp BP Pulse Ox 101 F H 104 H 18 149/68 95 12/06/16 07:49 12/06/16 07:49 12/06/16 07:49 12/06/16 07:49 12/06/16 07:49 Intake and Output: 12/06/16 12/06/16 06:59 18:59 Intake Total 780 Balance 780 - Medications Medications: Current Medications Acetaminophen (Tylenol 325mg Tab) 650 mg PO Q4H PRN PRN Reason: Fever >100.4 F Last Admin: 12/06/16 06:35 Dose: 650 mg Acyclovir (Zovirax) 400 mg PO BID KATTY PRN Reason: Protocol Last Admin: 12/05/16 17:51 Dose: 400 mg Meropenem 1g/NS 100mL IVPB (Meropenem 1g/Ns 100ml Ivpb) 1 gm in 100 mls @ 100 mls/hr IVPB Q8 KATTY PRN Reason: Protocol Stop: 12/11/16 07:29 Last Admin: 12/05/16 22:12 Dose: 100 mls/hr Insulin Human Regular (Humulin R) 0 units SC ACHS KATTY PRN Reason: Protocol Last Admin: 12/06/16 08:25 Dose: 3 units Nystatin (Nystatin Oral Susp) 5 ml PO QID [facility] Last Admin: 12/05/16 22:13 Dose: Not Given Ondansetron HCl (Zofran Inj) 4 mg IVP 0000,0600,1200,1800 [facility] Last Admin: 12/06/16 00:37 Dose: Not Given Sodium Chloride ([place] Nasal [place]) 0 ml NS TID KATTY Last Admin: 12/05/16 17:50 Dose: Not Given Vancomycin HCl (Vancocin 25 Mg/Ml (Oral Use)) 250 mg PO QID KATTY PRN Reason: Protocol Stop: 12/10/16 10:01 Last Admin: 12/05/16 22:13 Dose: 250 mg - Labs Labs: 12/05/16 05:40 12/05/16 05:40 - Constitutional Appears: Non-toxic, No Acute Distress - Head Exam Head Exam: NORMAL INSPECTION - ENT Exam ENT Exam: Mucous Membranes Moist - Neck Exam Neck Exam: absent: Meningismus - Respiratory Exam Respiratory Exam: Decreased Breath Sounds Additional comments: right anterior chest wall port site clean and intact - Cardiovascular Exam Cardiovascular Exam: +S1, +S2 - GI/Abdominal Exam GI & Abdominal Exam: Soft. absent: Tenderness Assessment and Plan - Assessment and Plan (Free Text) Plan: Assessment Severe diarrhea, R/O enterocolitis, on top of pseudomembranous colitis; R/O new onset sepsis R/O port infection history of periodontal infection on the left incisor tooth of the left maxillary area, with associated left sided facial cellulitis HTN DM stage 3 left breast cancer S/P surgery in 2016 S/P port placement 2016 , on chemotherapy Plan continue Merrem day 5 and PO Vancomycin day 4; awaiting stool studies; repeat cx from 12/04 are still negative; will repeat septic work up and also order CMV studies - will also give a dose of IV Vancomycin will continue to monitor clinically and trend fever curve discussed iwth Dr. Bradley
--- NOTE | 2016-12-06 12:41 | RAD ---
HISTORY: rule out pneumonia COMPARISON: 12/01/2016 TECHNIQUE: Chest PA and lateral FINDINGS: LUNGS: No active pulmonary disease. PLEURA: No significant pleural effusion identified. No pneumothorax apparent. CARDIOVASCULAR: Mild vascular congestion. The heart is normal in size OSSEOUS STRUCTURES: No significant abnormalities. VISUALIZED UPPER ABDOMEN: Normal. OTHER FINDINGS: None. IMPRESSION: No active disease.
[2016-12-06] MEDS: Meropenem IV 1 gm in NS 50 ML IVPB SCH ×2 (14:51→22:36)
[2016-12-06 16:15] VITALS: RESP 20
[2016-12-07] MEDS: Meropenem IV 1 gm in NS 50 ML IVPB SCH ×2 (05:22→14:34)
[2016-12-07] MEDS: Insulin Regular 1 UNITS/0.01 ML ML SC SCH ×3 (07:39→16:30)
[2016-12-07] MEDS: Vancomycin 25 MG/ML PO SCH ×3 (09:22→17:47)
[2016-12-07] MEDS: Nystatin 100,000 Units/ml Oral Susp 5 ml UD PO SCH ×3 (09:25→17:07)
[2016-12-07 10:45] LABS: URINE BILIRUBIN SMALL (NEGATIVE); URINE BLOOD LARGE (NEGATIVE); URINE GLUCOSE (UA) 100 mg/dL (NEGATIVE); URINE KETONE NEGATIVE (NEGATIVE); URINE LEUKOCYTE ESTERASE NEGATIVE Leu/uL (NEGATIVE); URINE PROTEIN >=300 mg/dL (<30 mg/dL); URINE UROBILINOGEN 0.2 E.U./dL (<1 E.U./dL)
[2016-12-07 11:02] LABS: URINE APPEARANCE SL CLOUDY (CLEAR); URINE COLOR YELLOW (YELLOW)
[2016-12-07 11:13] LABS: URINE BACTERIA FEW (NEG)
--- NOTE | 2016-12-07 13:06 | CP.PCM.PN ---
Subjective - Date & Time of Evaluation Date of Evaluation: 12/07/16 Time of Evaluation: 10:20 - Subjective Subjective: Still with low grade fevers overnight, no more diarrhea, no cough, no abdominal pain, no nausea. Has some pain and swelling of her legs. Objective - Vital Signs/Intake and Output Vital Signs (last 24 hours): Temp Pulse Resp BP Pulse Ox 100.2 F H 101 H 20 120/63 92 L 12/07/16 08:41 12/07/16 08:41 12/07/16 08:41 12/07/16 08:41 12/07/16 08:41 Intake and Output: 12/07/16 12/07/16 06:59 18:59 Intake Total 660 Output Total 700 Balance -40 - Medications Medications: Current Medications Acetaminophen (Tylenol 325mg Tab) 650 mg PO Q4H PRN PRN Reason: Fever >100.4 F Last Admin: 12/07/16 05:23 Dose: 650 mg Acyclovir (Zovirax) 400 mg PO BID KATTY PRN Reason: Protocol Last Admin: 12/06/16 17:21 Dose: 400 mg Meropenem (Merrem Iv 1 Gm Premix) 50 mls @ 100 mls/hr IVPB Q8 KATTY PRN Reason: Protocol Stop: 12/11/16 07:29 Last Admin: 12/07/16 05:22 Dose: 100 mls/hr Insulin Human Regular (Humulin R) 0 units SC ACHS KATTY PRN Reason: Protocol Last Admin: 12/07/16 07:39 Dose: 3 units Nystatin (Nystatin Oral Susp) 5 ml PO QID [facility] Last Admin: 12/06/16 22:32 Dose: Not Given Ondansetron HCl (Zofran Inj) 4 mg IVP 0000,0600,1200,1800 [facility] Last Admin: 12/07/16 05:23 Dose: 4 mg Sodium Chloride ([place] Nasal [place]) 0 ml NS TID KATTY Last Admin: 12/06/16 17:09 Dose: Not Given Vancomycin HCl (Vancocin 25 Mg/Ml (Oral Use)) 250 mg PO QID KATTY PRN Reason: Protocol Stop: 12/10/16 10:01 Last Admin: 12/06/16 22:37 Dose: 250 mg - Labs Labs: 12/05/16 05:40 12/05/16 05:40 - Constitutional Appears: Non-toxic, Chronically Ill - Head Exam Head Exam: NORMAL INSPECTION - ENT Exam ENT Exam: Mucous Membranes Moist - Neck Exam Neck Exam: absent: Meningismus - Respiratory Exam Respiratory Exam: Decreased Breath Sounds Additional comments: right anterior chest wall port-a-cath site intact - Cardiovascular Exam Cardiovascular Exam: +S1, +S2 - GI/Abdominal Exam GI & Abdominal Exam: Soft. absent: Tenderness - Extremities Exam Additional comments: right leg more swollen than the left Assessment and Plan - Assessment and Plan (Free Text) Plan: Assessment Severe diarrhea, R/O enterocolitis, on top of pseudomembranous colitis; R/O new onset sepsis R/O port infection leg swelling R/O DVT history of periodontal infection on the left incisor tooth of the left maxillary area, with associated left sided facial cellulitis HTN DM stage 3 left breast cancer S/P surgery in 2016 S/P port placement 2016 , on chemotherapy Plan continue Merrem day 6 and PO Vancomycin day 5; awaiting stool studies; repeat cx from 12/04 are still negative (and 12/06 negative so far) - has been given a dose of IV Vancomycin repeat CXR is negative will get doppler U/S of the legs will continue to monitor clinically and trend fever curve discussed with Dr. Bradley
--- NOTE | 2016-12-07 16:11 | CP.PCM.PN ---
Subjective - Date & Time of Evaluation Date of Evaluation: 12/07/16 Time of Evaluation: 10:30 - Subjective Subjective: Seen and examined at the bedside earlier today, chart was reviewed. Patient had mild temperature this morning, denies nausea, vomiting, or abdominal pain. Did have bowel movement but no diarrhea. No reports of overt GI bleeding. Complains of bilateral lower extremity edema. Objective - Vital Signs/Intake and Output Vital Signs (last 24 hours): Temp Pulse Resp BP Pulse Ox 100.2 F H 101 H 20 120/63 92 L 12/07/16 08:41 12/07/16 08:41 12/07/16 08:41 12/07/16 08:41 12/07/16 08:41 Intake and Output: 12/07/16 12/07/16 06:59 18:59 Intake Total 660 720 Output Total 700 Balance -40 720 - Medications Medications: Current Medications Acetaminophen (Tylenol 325mg Tab) 650 mg PO Q4H PRN PRN Reason: Fever >100.4 F Last Admin: 12/07/16 05:23 Dose: 650 mg Acyclovir (Zovirax) 400 mg PO BID KATTY PRN Reason: Protocol Last Admin: 12/07/16 09:20 Dose: 400 mg Meropenem (Merrem Iv 1 Gm Premix) 50 mls @ 100 mls/hr IVPB Q8 KATTY PRN Reason: Protocol Stop: 12/11/16 07:29 Last Admin: 12/07/16 14:34 Dose: 100 mls/hr Insulin Human Regular (Humulin R) 0 units SC ACHS KATTY PRN Reason: Protocol Last Admin: 12/07/16 11:12 Dose: 5 units Nystatin (Nystatin Oral Susp) 5 ml PO QID KATTY Last Admin: 12/07/16 14:35 Dose: Not Given Ondansetron HCl (Zofran Inj) 4 mg IVP 0000,0600,1200,1800 KATTY Last Admin: 12/07/16 12:00 Dose: Not Given Sodium Chloride ([place] Nasal [place]) 0 ml NS TID KATTY Last Admin: 12/07/16 14:35 Dose: Not Given Vancomycin HCl (Vancocin 25 Mg/Ml (Oral Use)) 250 mg PO QID KATTY PRN Reason: Protocol Stop: 12/10/16 10:01 Last Admin: 12/07/16 14:35 Dose: 250 mg - Labs Labs: 12/05/16 05:40 12/05/16 05:40 - Constitutional Appears: No Acute Distress - Eye Exam Eye Exam: Normal appearance. absent: Scleral icterus - ENT Exam ENT Exam: Mucous Membranes Moist - Respiratory Exam Respiratory Exam: NORMAL BREATHING PATTERN. absent: Respiratory Distress - Cardiovascular Exam Cardiovascular Exam: +S1, +S2 (and) - GI/Abdominal Exam GI & Abdominal Exam: Soft, Normal Bowel Sounds. absent: Guarding, Tenderness, Rebound - Extremities Exam Extremities Exam: Pedal Edema (bilateral lower extremity edema, right greater than left). absent: Calf Tenderness, Tenderness - Neurological Exam Neurological Exam: Alert, Awake, Oriented x3 - Skin Skin Exam: Dry, Warm Assessment and Plan - Assessment and Plan (Free Text) Assessment: Assessment: C. difficile colitis Fever Breast cancer currently receiving chemotherapy Abdominal pain, possible ileus, no obstruction Diverticulosis Diarrhea may be secondary to chemotherapy Anemia History of diabetes mellitus type 2 Hypertension Plan: obtain Dopplers of lower extremity, rule out DVT continue diet as tolerated On oral vancomycin IV antibiotics as per ID On acyclovir Continue PPI DVT prophylaxis Zofran when necessary As per oncology Seen and discussed with Dr. Santacruz
[2016-12-07 16:49] VITALS: BP 139/79; PULSE 92; TEMP 98.6; O2SAT 94
[2016-12-07 18:29] LABS: CYTOMEGALOVIRUS AB (IGG) 0.81 U/mL
--- NOTE | 2016-12-07 18:33 | US ---
HISTORY: Leg pain and swelling. Evaluate for DVT PHYSICIAN(S): Donavan Jameson MD. TECHNIQUE: Duplex sonography and color-flow Doppler with graded compression were used to evaluate the deep venous systems of both lower extremities. FINDINGS: The visualized deep venous systems of both lower extremities are sonographically normal and compressible. Normal wave forms and augmentation are seen. There is no sonographic evidence for deep venous thrombosis in the visualized segments of both lower extremities. IMPRESSION: No sonographic evidence for deep venous thrombosis in the visualized segments of both lower extremities.
[2016-12-07 18:41] LABS: CYTOMEGALOVIRUS AB (IGM) <30.00 AU/mL
--- NOTE | 2016-12-07 23:10 | CP.PCM.DIS ---
Provider - Provider Date of Admission: 12/01/16 18:45 Attending physician: Keyona Bradley MD Time Spent in preparation of Discharge (in minutes): 60 Hospital Course - Lab Results Lab Results: Micro Results 12/04/16 11:25 Blood Blood Culture - Preliminary NO GROWTH AFTER 3 DAYS 12/04/16 11:10 Blood Blood Culture - Preliminary NO GROWTH AFTER 3 DAYS 12/06/16 10:10 Blood-Venous Blood Culture - Preliminary NO GROWTH AFTER 24 HOURS 12/06/16 10:30 Blood-Thru Central Line Blood Culture - Preliminary NO GROWTH AFTER 24 HOURS 12/02/16 13:15 Stool Stool Culture - Final NO SALMONELLA, SHIGELLA OR CAMPYLOBACTER ISOLATED. 12/02/16 16:28 Stool C. difficile Antigen & Toxin A,B (M - Final 12/02/16 06:45 Urine,Clean Catch Urine Culture - Final No Growth (<1,000 CFU/ML) Most Recent Lab Values WBC 6.4 10^3/ul (4.5-11.0) 12/05/16 05:40 RBC 2.66 10^6/uL (3.5-6.1) L 12/05/16 05:40 Hgb 8.1 g/dL (12.0-16.0) L 12/05/16 05:40 Hct 24.5 % (36.0-48.0) L 12/05/16 05:40 MCV 92.1 fl (80.0-105.0) 12/05/16 05:40 MCH 30.5 pg (25.0-35.0) 12/05/16 05:40 MCHC 33.1 g/dl (31.0-37.0) 12/05/16 05:40 RDW 14.2 % (11.5-14.5) 12/05/16 05:40 Plt Count 280 10^3/uL (120.0-450.0) 12/05/16 05:40 MPV 9.0 fl (7.0-11.0) 12/05/16 05:40 Gran % 82.3 % (50.0-68.0) H 12/04/16 07:30 Lymph % (Auto) 10.4 % (22.0-35.0) L 12/04/16 07:30 [place] % (Auto) 6.7 % (1.0-6.0) H 12/04/16 07:30 Eos % (Auto) 0.4 % (1.5-5.0) L 12/04/16 07:30 Baso % (Auto) 0.2 % (0.0-3.0) 12/04/16 07:30 Gran # 4.46 (1.4-6.5) 12/04/16 07:30 Lymph # 0.6 (1.2-3.4) L 12/04/16 07:30 [place] # 0.4 (0.1-0.6) 12/04/16 07:30 Eos # 0.0 (0.0-0.7) 12/04/16 07:30 Baso # 0.01 K/mm3 (0.0-2.0) 12/04/16 07:30 Sodium 141 mmol/L (132-148) 12/05/16 05:40 Potassium 3.3 mmol/L (3.6-5.0) L 12/05/16 05:40 Chloride 106 mmol/L (98-107) 12/05/16 05:40 Carbon Dioxide 30 mmol/L (21-33) 12/05/16 05:40 Anion Gap 8 (10-20) L 12/05/16 05:40 BUN 7 mg/dL (7-21) 12/05/16 05:40 Creatinine 0.9 mg/dL (0.7-1.2) 12/05/16 05:40 Est GFR ( Amer) > 60 12/05/16 05:40 Est GFR (Non-Af Amer) > 60 12/05/16 05:40 POC Glucose (mg/dL) 130 mg/dL (65-110) H 12/07/16 16:08 Random Glucose 161 mg/dL (70-110) H 12/05/16 05:40 Lactic Acid 1.2 mmol/L (0.7-2.1) 12/01/16 22:51 Calcium 8.1 mg/dL (8.4-10.5) L 12/05/16 05:40 Magnesium 1.4 mg/dL (1.7-2.2) L 12/05/16 05:40 Total Bilirubin 0.2 mg/dL (0.2-1.3) 12/05/16 05:40 AST 23 U/L (14-36) 12/05/16 05:40 ALT 25 U/L (7-56) 12/05/16 05:40 Alkaline Phosphatase 71 U/L (38-126) 12/05/16 05:40 Total Protein 5.1 g/dL (5.8-8.3) L 12/05/16 05:40 Albumin 2.7 g/dL (3.0-4.8) L 12/05/16 05:40 Globulin 2.4 gm/dL 12/05/16 05:40 Albumin/Globulin Ratio 1.1 (1.1-1.8) 12/05/16 05:40 Amylase < 30 U/L (35-125) L 12/01/16 18:20 Lipase 98 U/L (23-300) 12/01/16 18:20 Procalcitonin 0.08 NG/ML (0.19-0.49) L 12/06/16 10:10 Urine Color Yellow (YELLOW) 12/07/16 10:30 Urine Appearance Sl cloudy (CLEAR) 12/07/16 10:30 Urine pH 6.0 (4.7-8.0) 12/07/16 10:30 Ur Specific [place] >= 1.030 (1.005-1.035) 12/07/16 10:30 Urine Protein >=300 mg/dL (<30 mg/dL) H 12/07/16 10:30 Urine Glucose (UA) 100 mg/dL (NEGATIVE) H 12/07/16 10:30 Urine Ketones Negative mg/dL (NEGATIVE) 12/07/16 10:30 Urine Blood Large (NEGATIVE) H 12/07/16 10:30 Urine Nitrate Negative (NEGATIVE) 12/07/16 10:30 Urine Bilirubin Small (NEGATIVE) H 12/07/16 10:30 Urine Urobilinogen 0.2 E.U./dL (<1 E.U./dL) 12/07/16 10:30 Ur Leukocyte Esterase Negative Promise/uL (NEGATIVE) 12/07/16 10:30 Urine RBC 2 - 5 /hpf (0-2) 12/07/16 10:30 Urine WBC 1 - 3 /hpf (0-6) 12/07/16 10:30 Ur Epithelial Cells 1 - 3 /hpf (0-5) 12/07/16 10:30 Urine Bacteria Few (NEG) 12/07/16 10:30 Coarse Granular Casts Trace /hpf (0-2) H 12/07/16 10:30 Stool Occult Blood Negative (NEGATIVE) 12/02/16 16:28 CMV IgG Ab 0.81 U/mL H 12/06/16 10:10 CMV IgM Ab <30.00 AU/mL 12/06/16 10:10 HIV 1&2 Ag/Ab, 4th Gen Nonreactive (Nonreactive) 12/02/16 08:30 - Hospital Course Hospital Course: 1. C-Diff colitis 2. Fever 3. Breast Cancer on chemo 4. Anemia Hopsital Course : admitted with fever, abdominal pain. Ct abdomen negative. C- diff positive. treated with IV meropenem, vanco PO, IV vanco. Blood, urine cultures negative. CXR no infiltrate. Low grade fever thought to be related to C-diff colitis. condition improved. GI, ID consults . Discharge Exam - Head Exam Head Exam: NORMAL INSPECTION - Eye Exam Eye Exam: Normal appearance - ENT Exam ENT Exam: Mucous Membranes Moist - Neck Exam Neck exam: Full Rom, Lymphadenopathy, Meningismus, Normal Inspection, Tenderness , Thyromegaly - Respiratory Exam Respiratory Exam: absent: Accessory Muscle Use, Chest Wall Tenderness, Decreased Breath Sounds, Clear to PA & Lateral, Prolonged Expiratory Phase, Rales, Rhonchi, Wheezes, Respiratory Distress, Stridor, NORMAL BREATHING PATTERN , UNREMARKABLE - GI/Abdominal Exam GI & Abdominal Exam: absent: Bruit, Diminished Bowel Sounds, Distended, Firm, Guarding, Hernia, Hyperactive Bowel Sounds, Hypoactive Bowel Sounds, Mass, Normal Bowel Sounds, Organomegaly, Pulsatile Mass, Rebound, Rigid, Soft, Tenderness, Unremarkable - Extremities Exam Extremities exam: normal inspection - Back Exam Back exam: NORMAL INSPECTION - Psychiatric Exam Psychiatric exam: Normal Affect - Skin Skin Exam: Normal Color, Warm Discharge Plan - Discharge Medications Prescriptions: Doxycycline Hyclate 500 mg PO BID #14 capsule Levofloxacin [Levaquin] 500 mg PO DAILY #7 tablet Vancomycin [Vancocin (ORAL OR RECTAL USE)] 250 mg PO QID #28 soln - Follow Up Plan Condition: FAIR Disposition: HOME/ ROUTINE Instructions: Diabetic Hyperglycemia (DC), Diabetic Hyperglycemia (GEN), Enteritis (DC), Enteritis (GEN) Additional Instructions: Patient discharged to home. Patient to follow up with Dr Bradley in 1 week.
== END 2016-12-07 18:56 | disposition home or self-care (01) | DRG 373 ==
LOC: ED 17:23 → ERH 18:45 → 3RNO 22:15
PROVIDERS: ADMIT Internal Medicine Medical Oncology; ATTEND Internal Medicine Medical Oncology
DX: A04.72 Enterocolitis due to Clostridium difficile, not specified as recurrent (principal); C50.912 Malignant neoplasm of unspecified site of left female breast; I10 Essential (primary) hypertension; E86.0 Dehydration; E11.9 Type 2 diabetes mellitus without complications; D50.9 Iron deficiency anemia, unspecified; T45.1X5A Adverse effect of antineoplastic and immunosuppressive drugs, initial encounter; K57.30 Diverticulosis of large intestine without perforation or abscess without bleeding; R09.82 Postnasal drip; Z78.9 Other specified health status; Z79.4 Long term (current) use of insulin; Z79.82 Long term (current) use of aspirin; Z88.5 Allergy status to narcotic agent

== ENCOUNTER 2016-12-13 14:51 | Inpatient (IN) | payer BC, OTHER ==
[2016-12-13 14:59] VITALS: RESP 18
--- NOTE | 2016-12-13 15:24 | ED PDOC ---
Arrival/HPI - General Chief Complaint: Medical Clearance Time Seen by Provider: 12/13/16 14:52 - History of Present Illness Narrative History of Present Illness (Text): 56F c/o blurry vision in her right eye for the last 2 weeks. started after she got home from the hospital after being admitted for c diff colitis. constant sx since onset. 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 she is currently on chemo for breast ca. Past Medical History - Infectious Disease Hx of Infectious Diseases: None - Cardiac Hx Cardiac Disorders: Yes Hx Hypertension: Yes - Pulmonary Hx Respiratory Disorders: No - Neurological Hx Neurological Disorder: No - HEENT Hx HEENT Disorder: Yes Other/Comment: Wears Glasses - Renal Hx Renal Disorder: No - Endocrine/Metabolic Hx Endocrine Disorders: Yes Hx Diabetes Mellitus Type 1: Yes Hx Diabetes Mellitus Type 2: Yes - Hematological/Oncological Hx Blood Disorders: Yes Hx Cancer: Yes (L side breast ca) Hx Chemotherapy: Yes (EVERY 3 WEEKS AT [facility] [place] LAST 11/25/2016) - Integumentary Hx Dermatological Disorder: No - Musculoskeletal/Rheumatological Hx Musculoskeletal Disorders: No - Gastrointestinal Hx Gastrointestinal Disorders: No - Genitourinary/Gynecological Hx Genitourinary Disorders: No - Psychiatric Hx Psychophysiologic Disorder: No Hx Substance Use: No - Surgical History Hx Section: Yes (x2) Hx Orthopedic Surgery: Yes (L knee sx) Other/Comment: lump removed left breast and lymph nodes due to CA 03/2016. R chest port 05/2016 - Anesthesia Hx Anesthesia: Yes Hx Anesthesia Reactions: No Hx Malignant Hyperthermia: No Family/Social History Family/Social History: Other (nc) Smoking Status: Never Smoked Hx Alcohol Use: Yes Frequency of alcohol use: Socially Hx Substance Use: No Allergies/Home Meds Allergies/Adverse Reactions: Allergies morphine Allergy (Mild, Verified 12/13/16 14:53) RASH Home Medications: Home Meds Medication Instructions Recorded Confirmed Aspirin [Ecotrin] 81 mg PO DAILY 06/29/16 12/13/16 Enalapril Maleate [Vasotec] 10 mg PO DAILY 06/29/16 12/13/16 Metformin ER [Glucophage XR] 500 mg PO BID 06/29/16 12/13/16 Insulin Aspart, Recombinant 0 unit SQ ACHS 07/11/16 12/13/16 [Novolog] Ondansetron [Zofran Tab] 8 mg PO BID 07/11/16 12/13/16 Acyclovir [Zovirax] 400 mg PO DAILY 07/12/16 12/13/16 Calcium Carbonate [Calcium] 1 tab PO DAILY 12/01/16 12/13/16 Dexamethasone [Decadron] 4 mg PO DAILY 12/01/16 12/13/16 Famotidine [Pepcid] 20 mg PO DAILY 12/01/16 12/13/16 Magnesium Oxide [Magnesium] 500 mg PO DAILY 12/01/16 12/13/16 Ciprofloxacin [Cipro] 500 mg PO DAILY 12/13/16 12/13/16 Insulin Human Regular [Novolin R] 0 units SC PRN PRN 12/13/16 12/13/16 amLODIPine [Norvasc] 5 mg PO DAILY 12/13/16 12/13/16 Review of Systems - Physician Review All systems were reviewed & negative as marked: Yes - Review of Systems Constitutional: absent: Fevers Eyes: Vision Changes. absent: Eye Pain Respiratory: absent: SOB, Cough Cardiovascular: absent: Chest Pain Gastrointestinal: absent: Nausea, Vomiting Genitourinary Female: absent: Dysuria Neurological: absent: Headache, Dizziness, Focal Weakness Physical Exam Vital Signs Reviewed: Yes Vital Signs Temp Pulse Resp BP Pulse Ox 12/13/16 16:52 86 18 138/65 96 12/13/16 14:56 98.2 F 96 H 18 141/62 95 Appearance: Positive for: Well-Appearing, Non-Toxic, Comfortable Pain Distress: None Mental Status: Positive for: Alert and Oriented X 3 - Systems Exam Head: Present: Atraumatic Pupils: Present: PERRL Extroacular Muscles: Present: EOMI Conjunctiva: Present: Normal Mouth: Present: Moist Mucous Membranes Neck: Present: Normal Range of Motion Respiratory/Chest: Present: Clear to Auscultation. No: Respiratory Distress, Accessory Muscle Use Cardiovascular: Present: Regular Rate and Rhythm, Murmurs Abdomen: No: Tenderness, Distention Upper Extremity: Present: NORMAL PULSES Neurological: Present: GCS=15, CN II-XII Intact, Motor Func Grossly Intact, Normal Sensory Function, Gait Normal, Other (no visual field deficit) Skin: Present: Warm, Dry Psychiatric: Present: Alert, Oriented x 3 Medical Decision Making ED Course and Treatment: ecg- nsr 98, nl axis, nl int, no acute ischemia Disc w Dr Bradley who rec admission for further eval- req neuro consult disc w Dr Vasquez who will see as consult - Lab Interpretations Lab Results: 12/13/16 15:30 12/13/16 15:30 Lab Results 12/13/16 15:30: Sodium 143, Potassium 3.0 L, Chloride 103, Carbon Dioxide 34 H, Anion Gap 9 L, BUN 11, Creatinine 1.0, Est GFR ( Amer) > 60, Est GFR (Non -Af Amer) 58, Random Glucose 181 H, Calcium 9.6, Total Bilirubin 0.4, AST 68 H D , ALT 38, Alkaline Phosphatase 75, Total Protein 5.8, Albumin 3.1, Globulin 2.7 , Albumin/Globulin Ratio 1.1 12/13/16 15:30: WBC 6.9, RBC 2.88 L, Hgb 8.6 L, Hct 26.9 L, MCV 93.4, MCH 29.9, MCHC 32.0, RDW 15.0 H, Plt Count 382, MPV 9.5, Gran % 76.9 H, Lymph % (Auto) 15.7 L, [place] % (Auto) 6.2 H, Eos % (Auto) 0.9 L, Baso % (Auto) 0.3, Gran # 5.30 , Lymph # 1.1 L, [place] # 0.4, Eos # 0.1, Baso # 0.02 - Medication Orders Current Medication Orders: Discontinued Medications Magnesium Oxide (Mag-Ox) 400 mg PO STAT STA Stop: 12/13/16 16:20 Last Admin: 12/13/16 17:25 Dose: 400 mg Potassium Chloride (K-Dur 20 Meq Er Tab) 40 meq PO STAT STA Stop: 12/13/16 16:20 Last Admin: 12/13/16 16:31 Dose: 40 meq Disposition/Present on Arrival - Present on Arrival Any Indicators Present on Arrival: No History of DVT/PE: No History of Uncontrolled Diabetes: No Urinary Catheter: No History of Decub. Ulcer: No History Surgical Site Infection Following: None - Disposition Have Diagnosis and Disposition been Completed?: Yes Diagnosis: Visual disturbance Disposition: HOSPITALIZED Disposition Time: 15:39 Condition: STABLE
[2016-12-13 16:10] LABS: ALB/GLOB RATIO 1.1 (1.1-1.8); ALKALINE PHOSPHATASE 75 U/L (38-126); ALT/SGPT 38 U/L (7-56); AST/SGOT 68 U/L (14-36); BILIRUBIN,TOTAL 0.4 mg/dL (0.2-1.3); BLOOD UREA NITROGEN 11 mg/dL (7-21); CALCIUM 9.6 mg/dL (8.4-10.5); CARBON DIOXIDE 34 mmol/L (21-33); CHLORIDE 103 mmol/L (98-107); GFR AFRICAN-AMERICAN > 60; GLUCOSE,RANDOM 181 mg/dL (70-110); SODIUM 143 mmol/L (132-148); TOTAL PROTEIN 5.8 g/dL (5.8-8.3)
[2016-12-13] MEDS ORDERED: Magnesium Oxide 400 mg Tab UD PO STA (16:19)
[2016-12-13] MEDS ORDERED: Potassium Chloride 20 mEq ER Tab PO STA (16:19)
[2016-12-13 16:26] LABS: BASO # 0.02 K/mm3 (0.0-2.0); BASO % 0.3 % (0.0-3.0); EOS # 0.1 (0.0-0.7); EOS % 0.9 % (1.5-5.0); GRAN # 5.3 (1.4-6.5); GRAN % 76.9 % (50.0-68.0); HEMATOCRIT 26.9 % (36.0-48.0); LYMPH # 1.1 (1.2-3.4); LYMPH % 15.7 % (22.0-35.0); MEAN CELL VOLUME 93.4 fl (80.0-105.0); MEAN CORPUSCULAR HEMOGLOBIN 29.9 pg (25.0-35.0); MEAN PLATELET VOLUME 9.5 fl (7.0-11.0); MONO # 0.4 (0.1-0.6); MONO % 6.2 % (1.0-6.0); WHITE BLOOD COUNT 6.9 10^3/ul (4.5-11.0)
[2016-12-13] MEDS ORDERED: Gadodiamide 287 MG/ML VIAL (15ML) IV ONE (17:43)
--- NOTE | 2016-12-13 18:49 | CP.PCM.CON ---
<Sean Almanza - Last Filed: 12/13/16 18:49> History of Present Illness - History of Present Illness History of Present Illness: Neurology consult note for Dr. Vasquez's service - Kimmie Almanza PGY2 Reason for consult: blurry vision HPI: Patient is a 56yo female with past medical history of breast cancer currently undergoing chemotherapy with Dr. Bradley, DM type 2, hypertension, anemia, history of cdiff colitis that presented c/o right eye blurry vision for approximately 2 weeks. Patient reported that she was at her ophthalmologists office on Monday and was told her retina was swollen and was given an injection into her right eye. She subsequently reported discussing her blurry vision with Dr. Bradley who recommended she come to the hospital for neurologic evaluation. Per patient, her opthalmologist instructed her to return for follow up visit in 3 weeks. Today she reports continued blurry vision in her right eye. Neurology consulted for evaluation. 12point ROS as per HPI above otherwise negative Past medical history: Breast cancer currently undergoing chemotherapy, diabetes mellitus type 2, hypertension, anemia Surgical history: Left knee surgery, 2, right-sided port insertion, left breast lumpectomy Family history: Noncontributory Social history: Denies smoking, EtOH or drugs Medication: Reviewed as per MAR Allergies: Morphine Past Patient History - Infectious Disease Hx of Infectious Diseases: None - Past Medical History & Family History Past Medical History?: Yes - Past Social History Smoking Status: Never Smoked - CARDIAC Hx Cardiac Disorders: Yes Hx Hypertension: Yes - PULMONARY Hx Respiratory Disorders: No - NEUROLOGICAL Hx Neurological Disorder: No - HEENT Hx HEENT Problems: Yes Other/Comment: Wears Glasses - RENAL Hx Chronic Kidney Disease: No - ENDOCRINE/METABOLIC Hx Endocrine Disorders: Yes Hx Diabetes Mellitus Type 1: Yes Hx Diabetes Mellitus Type 2: Yes - HEMATOLOGICAL/ONCOLOGICAL Hx Blood Disorders: Yes Hx Cancer: Yes (L side breast ca) Hx Chemotherapy: Yes (EVERY 3 WEEKS AT [facility] – [place], LAST 11/25/2016) - INTEGUMENTARY Hx Dermatological Problems: No - MUSCULOSKELETAL/RHEUMATOLOGICAL Hx Musculoskeletal Disorders: No - GASTROINTESTINAL Hx Gastrointestinal Disorders: No - GENITOURINARY/GYNECOLOGICAL Hx Genitourinary Disorders: No - PSYCHIATRIC Hx Psychophysiologic Disorder: No Hx Substance Use: No - SURGICAL HISTORY Hx Section: Yes (x2) Hx Orthopedic Surgery: Yes (L knee sx) Other/Comment: lump removed left breast and lymph nodes due to CA 03/2016. R chest port 05/2016 - ANESTHESIA Hx Anesthesia: Yes Hx Anesthesia Reactions: No Hx Malignant Hyperthermia: No Meds Allergies/Adverse Reactions: Allergies Allergy/AdvReac Type Severity Reaction Status Date / Time morphine Allergy Mild RASH Verified 12/13/16 14:53 Physical Exam - Constitutional Appears: No Acute Distress - Head Exam Head Exam: ATRAUMATIC, NORMAL INSPECTION, NORMOCEPHALIC - Eye Exam Eye Exam: EOMI, Normal appearance, PERRL. absent: Conjunctival injection, Nystagmus, Periorbital tenderness - ENT Exam ENT Exam: Mucous Membranes Moist - Neck Exam Neck exam: Positive for: Normal Inspection - Respiratory Exam Respiratory Exam: Clear to Auscultation Bilateral. absent: Rales, Rhonchi, Wheezes - Cardiovascular Exam Cardiovascular Exam: RRR, +S1, +S2. absent: Gallop, JVD, Rubs - GI/Abdominal Exam GI & Abdominal Exam: Soft. absent: Distended, Firm, Guarding, Rebound, Tenderness - Neurological Exam Neurological exam: Alert, CN II-XII Intact, Oriented x3 Additional comments: Alert and oriented x3 EOMI PERRL CN2-12 grossly intact motor function grossly intact sensory intact throughout - Psychiatric Exam Psychiatric exam: Normal Affect, Normal Mood - Skin Skin Exam: Dry, Intact, Normal Color, Warm Results - Vital Signs Recent Vital Signs: Last Vital Signs Temp 98.2 F 12/13/16 14:56 Pulse 86 12/13/16 16:52 Resp 18 12/13/16 16:52 BP 138/65 12/13/16 16:52 Pulse Ox 96 12/13/16 16:52 - Labs Result Diagrams: 12/13/16 15:30 12/13/16 15:30 Assessment & Plan - Assessment and Plan (Free Text) Plan: 56yo female with history of breast cancer currently undergoing chemotherapy with Dr. Bradley, DM type 2, hypertension, anemia, history of cdiff colitis that presents c/o right eye blurry vision for approximately 2 weeks. Neurology consulted for evaluation. 1. Right eye blurry vision 2. Left-sided breast Ca 3. DM type 2 4. Hypertension 5. Anemia -MRI Brain has been ordered and is pending to rule out central lesion. 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 -Monitor and correct electrolyte abnormalities as indicated -Recommend anemia workup -Further recommendations as per attending, Dr. Vasquez Patient seen and case discussed/reviewed with attending, Dr. Vasquez <Zeeshan Vasquez - Last Filed: 12/14/16 09:08> Meds - Medications Medications: Current Medications Acyclovir (Zovirax) 400 mg PO DAILY [facility] Amlodipine Besylate (Norvasc) 5 mg PO DAILY [facility] Aspirin (Ecotrin) 81 mg PO DAILY KATTY Calcium Carbonate (Oscal) 1 mg PO DAILY [facility] Insulin Human Regular (Humulin R) 0 units SC ACHS KATTY PRN Reason: Protocol Last Admin: 12/14/16 07:51 Dose: Not Given Lisinopril (Zestril) 10 mg PO DAILY [facility] Metformin HCl (Glucophage Xr) 500 mg PO BID [facility] Last Admin: 12/14/16 04:47 Dose: Not Given Ondansetron HCl (Zofran Tab) 8 mg PO BID KATTY Vancomycin HCl (Vancocin (Oral/Rectal Use)) 250 mg PO QID [facility] PRN Reason: Protocol Last Admin: 12/13/16 22:19 Dose: 250 mg Results - Vital Signs Recent Vital Signs: Last Vital Signs Temp 98 F 12/14/16 07:49 Pulse 83 12/14/16 07:49 Resp 18 12/14/16 07:49 BP 156/79 H 12/14/16 07:49 Pulse Ox 97 12/14/16 07:49 - Labs Result Diagrams: 12/13/16 15:30 12/13/16 15:30 Labs: Laboratory Results - last 24 hr 12/13/16 12/14/16 21:57 07:09 POC Glucose (mg/dL) 194 H 102 Attending/Attestation - Attestation I have personally seen and examined this patient.: Yes I have fully participated in the care of the patient.: Yes I have reviewed all pertinent clinical information: Yes
--- NOTE | 2016-12-13 19:53 | MRI ---
EXAM: MR Head Without and With Intravenous Contrast EXAM DATE/TIME: 12/13/2016 3:43 PM CLINICAL HISTORY: The patient age is 56 years old and is female; Signs and symptoms; Visual disturbance; Additional info: Visual change Facility exam id and description: Mri br cs brain w wo contrast TECHNIQUE: Magnetic resonance images of the head/brain without and with intravenous contrast in multiple planes. CONTRAST: 15 mL of optimark administered intravenously. COMPARISON: MR - BRAIN W WO CONTRAST 2016-05-06 10:17 FINDINGS: Brain: There is no restricted diffusion within the brain to suggest acute ischemic change. No definitive abnormally enhancing intracranial mass is visualized. There are several tiny foci of high FLAIR signal intensity within the cerebral white matter. There is no mass effect or restricted diffusion associated with these foci. This white matter disease is nonspecific as to etiology. Possible etiologies include chronic small vessel ischemic disease, foci of demyelination, and post-traumatic change. There is no significant progression or white matter disease compared to the prior study. There is a small focus of T2 hyperintensity within the left side of the thea, similar etiology to the above-mentioned white matter disease. There is increased fluid within the anterior aspect of the left middle cranial fossa measuring 2.4 x 2.3 cm, consistent with arachnoid cyst. This is irregular in shape. A small focus of hyperintensity seen on the coronal postcontrast sequence within the inferior right frontal lobe, without mass effect on the remaining postcontrast sequences. This likely contributed by artifact. No cerebral edema. Ventricles: No ventriculomegaly. Bones/joints: There is no subluxation to the left Sinuses: There is minimal mucosal thickening of a left anterior ethmoid air cell. No acute sinusitis. Mastoid air cells: There is minimal mucosal thickening of right mastoid air cells. Orbits: No acute abnormality, as visualized. IMPRESSION: 1. There is no restricted diffusion within the brain to suggest acute ischemic change. 2. No definitive abnormally enhancing intracranial mass is visualized. 3. There are several tiny foci of high FLAIR signal intensity within the cerebral white matter. This white matter disease is nonspecific as to etiology. Possible etiologies include chronic small vessel ischemic disease, foci of demyelination, and post-traumatic change. There is no significant progression or white matter disease compared to the prior study. 4. There is a small focus of T2 hyperintensity within the left side of the thea, similar etiology to the above-mentioned white matter disease. 5. There is increased fluid within the anterior aspect of the left middle cranial fossa measuring 2.4 x 2.3 cm, consistent with arachnoid cyst. This is stable. 6. Incidental/non-acute findings are described above.
--- NOTE | 2016-12-13 22:05 | CARD ---
APPROVED REPORT EKG Measurement Heart [id number] <Conclusion> Normal sinus rhythm Anterior infarct, age undetermined Abnormal ECG
[2016-12-13] MEDS: Vancomycin 500 mg (Oral/Rectal USE) PO SCH (22:19)
[2016-12-13] MEDS: INSULIN REGULAR SC SCH (22:19)
[2016-12-13 23:33] VITALS: BMI 33.6
[2016-12-13] MEDS ORDERED: Influenza Vaccine 60 mcg/0.5 mL SYR (4YR UP) IM ONE (23:33)
[2016-12-14] MEDS: INSULIN REGULAR SC SCH ×4 (07:51→21:33)
[2016-12-14] MEDS ORDERED: levoFLOXacin 500 MG TAB PO SCH (10:00)
[2016-12-14] MEDS: Vancomycin 25 MG/ML PO SCH ×3 (13:01→22:17)
--- NOTE | 2016-12-14 13:19 | CON ---
NEUROLOGY FOLLOWUP DATE: 12/14/2016 CHIEF COMPLAINT: Follow up for blurred vision. SUBJECTIVE: The patient is seen and examined at the bedside, moving all extremities, walking around without any difficulty. MRI of the brain failed to show any acute intracranial abnormality. Vision is slightly much better today. PAST MEDICAL HISTORY: Breast cancer, undergoing chemotherapy; type 2 diabetes mellitus; hypertension and anemia. PAST SURGICAL HISTORY: Left knee surgery, , right side port insert, and left breast lumpectomy. FAMILY HISTORY: Noncontributory. SOCIAL HISTORY: No illicit drug use, smoking or EtOH abuse. MEDICATIONS: Reviewed by nurse reconciliation sheet. ALLERGIES: ALLERGIC TO MORPHINE. PHYSICAL EXAMINATION: GENERAL: The patient is sitting up in the bed, in no acute distress. VITAL SIGNS: Temperature 98, pulse rate of 83, blood pressure 156/79, respirations 18 and oxygen saturations 97% by room air. HEENT: Atraumatic and normocephalic. PERRLA. Extraocular muscles intact. NECK: Supple. No JVD. No adenopathy noted. LUNGS: Clear to auscultation. No adventitious sounds. HEART: S1 and S2. Normal rate and rhythm. No murmurs, rubs, or gallops. ABDOMEN: Soft, nontender and nondistended. Bowel sounds present. EXTREMITIES: No clubbing, no cyanosis. Peripheral pulses 2+ felt bilaterally. NEUROLOGIC: The patient is alert and oriented to person, place, month and year. Speech is fluent without any errors. Cranial nerves II through XII are intact. Motor exam: Moves all extremities equally. No pronator drift seen. Sensory exam: Light touch, pinprick, slightly decreased up to the calves, slightly decreased vibration to the toes. DTRs are 2+ throughout and 1 at the ankles. Coordination: Pyejbl-zi-fmol intact. Gait is slightly wide based, otherwise normal. Romberg negative. LABORATORY DATA: Glucose is 102. MRI of the brain showed no acute intracranial abnormality. ASSESSMENT AND PLAN: This is a 56-year-old woman with history of breast cancer, is undergoing chemotherapy by Dr. Bradley; type 2 diabetes mellitus; hypertension; anemia; history of Clostridium difficile, presenting with right eye blurry vision for approximately 2 weeks, usually saw a retinal specialist, had given an injection in the retinal artery and came in for worsening of right eye blurry vision. MRI of the brain showed no acute intracranial abnormality, her symptoms are mostly like a diabetic retinopathy, more peripheral visual issues rather than central from the brain. At this time, she is clinically stable from my standpoint and can follow up with Ophthalmology as an outpatient. Recommend aspirin 81 mg p.o. daily for stroke prevention and diabetic diet as well as keep blood sugars between 140 and 180. Zeeshan Vasquez MD
--- NOTE | 2016-12-14 16:35 | CARD ---
APPROVED REPORT EXAM: Two-dimensional and M-mode echocardiogram with Doppler and color Doppler. INDICATION Infection:Rule out subacute bacterial endocarditis 2D DIMENSIONS Left Atrium (2D)4.4 (1.6-4.0cm)IVSd1.1 (0.7-1.1cm) LVDd4.4 (3.9-5.9cm)PWd1.3 (0.7-1.1cm) LVDs3.4 (2.5-4.0cm)FS (%) 23.3 % LVEF (%)46.9 (>50%) M-Mode DIMENSIONS Aortic Root2.90 (2.2-3.7cm)Aortic Cusp Exc.1.70 (1.5-2.0cm) Aortic Valve AoV Peak Ounsklav390.0cm/Bella Peak GR.11mmHg Mitral Valve MV E Gwlhziyy13.3cm/sMV A Tqlwbdgm49.3cm/sE/A ratio1.0 TDI Lateral E' Peak V7.31cm/sMedial E' Peak V5.85cm/sE/Lateral E'12.9 E/Medial E'16.1 Pulmonary Valve PV Peak Tqnbnidy00.5cm/sPV Peak Grad.3mmHg Tricuspid Valve TR Peak Dczaaqdw774dk/sRAP STXKQIPW84mhUrRO Peak Gr.19mmHg [id number] LEFT VENTRICLE The left ventricle is normal size. There is normal left ventricular wall thickness. The systolic function is mildly impaired. Tissue Doppler imaging reveals mild left ventricular diastolic dysfunction. RIGHT VENTRICLE The right ventricle is normal size. There is normal right ventricular wall thickness. The right ventricular systolic function is normal. ATRIA The left atrium is borderline dilated. The right atrium size is normal. AORTIC VALVE The aortic valve is not well visualized. No aortic regurgitation is present. There is no aortic valvular stenosis. MITRAL VALVE The mitral valve is normal in structure. Mitral regurgitation is mild. TRICUSPID VALVE There is no tricuspid valve regurgitation noted. GREAT VESSELS The aortic root is normal in size. PERICARDIAL EFFUSION There is no pericardial effusion. <Conclusion> The left ventricle is normal size. There is normal left ventricular wall thickness. The systolic function is mildly impaired. Tissue Doppler imaging reveals mild left ventricular diastolic dysfunction. Mitral regurgitation is mild. No vegitation seen
[2016-12-14] MEDS: Vancomycin 500 mg (Oral/Rectal USE) PO SCH (19:24)
--- NOTE | 2016-12-15 00:03 | HP ---
DATE: 12/14/2016 HISTORY OF PRESENT ILLNESS: Ms. Linn is a 56-year-old female well known to me from office. She presented to office yesterday with blurry vision in the right eye and also in the left eye. She saw Dr. Sebastian, retinal senior service technician in [place], who injected in the right eye. She does not know the nature of medication. She was told to follow up in 3 weeks. She was recently admitted to the hospital with C. diff colitis and mucositis, was treated with IV antibiotics. She continues to take doxycycline, Levaquin, and oral vancomycin. Her last chemo was around 3 weeks ago. PAST MEDICAL HISTORY: Breast cancer; diabetes mellitus type 2, uncontrolled. PAST SURGICAL HISTORY: ; lumpectomy, left breast. PERSONAL HISTORY: Never smoked. No history of alcohol abuse. ALLERGIES: MORPHINE. FAMILY HISTORY: Noncontributory. REVIEW OF SYSTEMS: As per HPI. Rest of 12-point review of systems is reviewed and negative. HOME MEDICATIONS: Aspirin 81 mg daily, enalapril 10 mg daily, metformin 500 mg p.o. b.i.d., Zofran 8 mg p.o. b.i.d., acyclovir 400 mg p.o. b.i.d., Pepcid 20 mg daily, magnesium 500 mg daily, Cipro 500 mg daily, insulin, and amlodipine 5 mg daily. PHYSICAL EXAMINATION GENERAL: Comfortable in bed, in no acute distress. VITAL SIGNS: Temperature 98.7, heart rate is 80 per minute. HEENT: Pallor positive. NECK: No lymphadenopathy. CHEST: Air entry present and equal bilaterally. No added sounds. CARDIOVASCULAR: Within normal limits. ABDOMEN: Soft and nontender. No hepatosplenomegaly. EXTREMITIES: No edema. VISION: She cannot recognize people. Blurry vision in both eyes. LABORATORY DATA: White count 6.9, hemoglobin 8.6, hematocrit 26.9, and platelets 382. Sodium 143, potassium 3, BUN 18, creatinine 1, glucose 181. ASSESSMENT: 1. Blurry vision, bilateral eyes. 2. History of recent colitis. 3. Breast cancer, on chemotherapy. 4. Diabetes mellitus, uncontrolled. 5. Hypertension. PLAN: She will be admitted to the hospital. Neuro consultation, Dr. Vasquez, requested. MRI of the brain with and without intravenous contrast requested to be done. Stat MRI reviewed, no acute changes. We will continue Cipro 500 mg daily, acyclovir 400 mg p.o. b.i.d., doxycycline 100 mg p.o. b.i.d., and vancomycin 125 mg p.o. q.i.d. We will continue sliding scale insulin. Glucose check q.a.c., q.h.s. Amlodipine 5 mg daily and lisinopril 10 mg daily for hypertension. Mike valle Infectious Disease consultation, Dr. Domingo, requested. Discussed at length with Dr. Domingo to rule out possibility of thromboembolic/infective embolism causing blurry vision. CMV PCR a week ago was done, was negative. Dr. Domingo suggested starting intravenous acyclovir for possible herpes encephalitis. We will discuss with Dr. Vasquez regarding lumbar puncture. Keyona Bradley MD MTDD
--- NOTE | 2016-12-15 07:39 | CON ---
DATE: 12/14/2016 LOCATION: The patient is in room #560, bed #2. The patient was seen early this morning. CHIEF COMPLAINT: Blurred vision, right eye greater than the left times one to two weeks' duration. HISTORY OF PRESENT ILLNESS: This is a 56-year-old female known to me from previous admission with hypertension, diabetes, breast cancer stage III, had chemotherapy within the hospital, and last admission recently with diarrhea. The patient was discharged on 12/07/2016 and then she had diarrhea and found to have C. diff. She had fevers. Her cultures were negative, but C. diff was positive and she was given p.o. vancomycin, which is resolved. Now, the patient was admitted with blurred vision. She had seen an flatbed owner operator who is a retinal surgeon, who advised her to follow up with him in 3 weeks. The patient was admitted to the hospital by Dr. Bradley because of the blurred vision. The patient denies any headaches, any fevers, or any chills. Her diarrhea has resolved. No abdominal pain, diarrhea or constipation. No chest pain, no rash, no joint pain. PAST MEDICAL HISTORY: Significant for hypertension, diabetes, and breast cancer stage III, status post chemotherapy. PAST SURGICAL HISTORY: Significant for Port-A-Cath, and the patient had a left lumpectomy. ALLERGIES: THE PATIENT IS ALLERGIC TO MORPHINE. MEDICATIONS: At home include, the patient had been on p.o. vancomycin. The patient is also on acyclovir at home and she is on Norvasc, Glucophage, and Vasotec. PHYSICAL EXAMINATION: GENERAL: The patient is in bed, no acute distress. She is unable to see clearly. VITAL SIGNS: Temperature of 98, blood pressure is 150/70, respiratory rate of 18, and heart rate of 90. HEENT: Noted that the patient has haziness in her eye. Her extraocular muscles are intact. There is no conjunctivitis. There is no erythema and no discharge. NECK: Supple. LUNGS: Clear. HEART: Normal S1 and S2. ABDOMEN: Soft and nontender. LABORATORY DATA: Reveals the patient has a white count of 6.9, hemoglobin of 8, and platelets of 382. Chemistries reveal a BUN of 11, creatinine of 1.0, AST is 68. Microbiology is reviewed. All blood cultures on previous admissions have been negative. The patient does have a Port-A-Cath. Port-A-Cath site is clean. No evidence of infection. All blood cultures throughout entire this year and prior admissions of patient have been all negative. Urine cultures have been negative. Stool cultures, no Salmonella or Campylobacter or Shigella. On review of the laboratories from her previous admissions, the patient had a negative HIV, negative CMV PCR. The patient also at this admission had an MRI of the brain, which was read by Dr. Fabrice Walker, and no acute findings are noted. ASSESSMENT AND PLAN: This is a 56-year-old female with hypertension, diabetes, and breast cancer stage III, status post chemotherapy, was on Port-A-Cath, with pseudomembranous colitis, now presenting with bilateral blurred vision, right greater than the left, acute retinal necrosis of varicella zoster versus herpes simplex. Patricia endophthalmitis is less likely. The patient is not having any fevers at this time. All her cultures have been negative. She should have a full ophthalmology evaluation. Again, I will empirically start the patient on acyclovir for possible varicella zoster and herpes simplex versus simplex. I will also order herpes 1 and 2 PCR, herpesvirus 6 DNA, herpesvirus 8 QuantiFERON Gold, RPR, FTA, and cryptococcal antigen, blood cultures x2. We will start the patient on 10 mg/kg IV acyclovir q. 8 hours, pending an Ophthalmology evaluation retinal findings. If acute necrosis is entertained and diagnosed, the patient will need at least 7-10 days of IV acyclovir followed by 6 weeks of valacyclovir 1000 mg p.o. t.i.d., and we will follow closely with you. It is not clear if the patient was taking her acyclovir, and the dose she was on may not have been adequate for acute retinal necrosis if it was zoster. We will follow closely with you. Case discussed with Dr. Bradley at length. Curt Domingo MD
[2016-12-15] MEDS: INSULIN REGULAR SC SCH ×2 (08:35→12:27)
--- NOTE | 2016-12-15 08:55 | MRI ---
PROCEDURE: Magnetic Resonance Angiography Brain HISTORY: visual change COMPARISON: None available. TECHNIQUE: 3D time of flight MR angiography of the intracranial arteries was performed. Rotating maximum intensity projection images were generated. FINDINGS: INTERNAL CAROTID ARTERIES: Unremarkable. The skull base, petrous, cavernous and supraclinoid segments are bilaterally widely patient. ANTERIOR CEREBRAL ARTERIES: Unremarkable. A1 and A2 segments are widely patent. Smaller distal branches unremarkable, as visualized. MIDDLE CEREBRAL ARTERIES: Unremarkable. M1 and M2 segments are widely patent. Perisylvian branches grossly symmetric. POSTERIOR CIRCULATION: Basilar Artery: Unremarkable. Distal Vertebral Arteries: Unremarkable. Posterior Cerebral Arteries: Unremarkable. Posterior Inferior Cerebellar Arteries: Unremarkable. ANEURYSM/ VASCULAR MALFORMATIONS: None. OTHER FINDINGS: None. IMPRESSION: Unremarkable MR angiography of the brain.
[2016-12-15] MEDS: Vancomycin 25 MG/ML PO SCH ×2 (09:48→14:27)
[2016-12-15 10:45] LABS: BASO # 0.01 K/mm3 (0.0-2.0); BASO % 0.2 % (0.0-3.0); BLOOD UREA NITROGEN 16 mg/dL (7-21); CALCIUM 9.4 mg/dL (8.4-10.5); CARBON DIOXIDE 34 mmol/L (21-33); CHLORIDE 101 mmol/L (98-107); EOS # 0.1 (0.0-0.7); EOS % 1.6 % (1.5-5.0); GFR AFRICAN-AMERICAN > 60; GLUCOSE,RANDOM 199 mg/dL (70-110); GRAN # 2.99 (1.4-6.5); GRAN % 69.7 % (50.0-68.0); HEMATOCRIT 25.3 % (36.0-48.0); LYMPH # 0.9 (1.2-3.4); MEAN CELL VOLUME 94.4 fl (80.0-105.0); MEAN CORPUSCULAR HEMOGLOBIN 29.9 pg (25.0-35.0); MEAN CORPUSCULAR HGB CONC 31.6 g/dl (31.0-37.0); MEAN PLATELET VOLUME 9.9 fl (7.0-11.0); MONO # 0.3 (0.1-0.6); MONO % 7.5 % (1.0-6.0); POTASSIUM 3.7 mmol/L (3.6-5.0); RED CELL DISTRIBUTION WIDTH 15.1 % (11.5-14.5); SODIUM 139 mmol/L (132-148)
[2016-12-15 10:47] LABS: WHITE BLOOD COUNT 4.3 10^3/ul (4.5-11.0)
[2016-12-15 15:54] VITALS: BP 113/44; PULSE 91; TEMP 98.1; O2SAT 91
--- NOTE | 2016-12-15 22:48 | CP.PCM.DIS ---
Provider - Provider Date of Admission: 12/14/16 14:00 Attending physician: Keyona Bradley MD Primary care physician: Keyona Bradley MD Time Spent in preparation of Discharge (in minutes): 60 Hospital Course - Lab Results Lab Results: Micro Results 12/14/16 19:20 Blood-Thru Central Line Blood Culture - Preliminary NO GROWTH AFTER 24 HOURS Most Recent Lab Values WBC 4.3 10^3/ul (4.5-11.0) L D 12/15/16 10:38 RBC 2.68 10^6/uL (3.5-6.1) L 12/15/16 10:38 Hgb 8.0 g/dL (12.0-16.0) L 12/15/16 10:38 Hct 25.3 % (36.0-48.0) L 12/15/16 10:38 MCV 94.4 fl (80.0-105.0) 12/15/16 10:38 MCH 29.9 pg (25.0-35.0) 12/15/16 10:38 MCHC 31.6 g/dl (31.0-37.0) 12/15/16 10:38 RDW 15.1 % (11.5-14.5) H 12/15/16 10:38 Plt Count 346 10^3/uL (120.0-450.0) 12/15/16 10:38 MPV 9.9 fl (7.0-11.0) 12/15/16 10:38 Gran % 69.7 % (50.0-68.0) H 12/15/16 10:38 Lymph % (Auto) 21.0 % (22.0-35.0) L 12/15/16 10:38 Barber % (Auto) 7.5 % (1.0-6.0) H 12/15/16 10:38 Eos % (Auto) 1.6 % (1.5-5.0) 12/15/16 10:38 Baso % (Auto) 0.2 % (0.0-3.0) 12/15/16 10:38 Gran # 2.99 (1.4-6.5) 12/15/16 10:38 Lymph # 0.9 (1.2-3.4) L 12/15/16 10:38 Barber # 0.3 (0.1-0.6) 12/15/16 10:38 Eos # 0.1 (0.0-0.7) 12/15/16 10:38 Baso # 0.01 K/mm3 (0.0-2.0) 12/15/16 10:38 Sodium 139 mmol/L (132-148) 12/15/16 10:38 Potassium 3.7 mmol/L (3.6-5.0) 12/15/16 10:38 Chloride 101 mmol/L (98-107) 12/15/16 10:38 Carbon Dioxide 34 mmol/L (21-33) H 12/15/16 10:38 Anion Gap 8 (10-20) L 12/15/16 10:38 BUN 16 mg/dL (7-21) 12/15/16 10:38 Creatinine 1.0 mg/dL (0.7-1.2) 12/15/16 10:38 Est GFR ( Amer) > 60 12/15/16 10:38 Est GFR (Non-Af Amer) 58 12/15/16 10:38 POC Glucose (mg/dL) 317 mg/dL (65-110) H 12/15/16 11:08 Random Glucose 199 mg/dL (70-110) H 12/15/16 10:38 Calcium 9.4 mg/dL (8.4-10.5) 12/15/16 10:38 Total Bilirubin 0.4 mg/dL (0.2-1.3) 12/13/16 15:30 AST 68 U/L (14-36) H D 12/13/16 15:30 ALT 38 U/L (7-56) 12/13/16 15:30 Alkaline Phosphatase 75 U/L (38-126) 12/13/16 15:30 Total Protein 5.8 g/dL (5.8-8.3) 12/13/16 15:30 Albumin 3.1 g/dL (3.0-4.8) 12/13/16 15:30 Globulin 2.7 gm/dL 12/13/16 15:30 Albumin/Globulin Ratio 1.1 (1.1-1.8) 12/13/16 15:30 - Hospital Course Hospital Course: 1. Blurry vision right eye 2. Breast cancer 3. recent c-diff colitis She was admitted with sudden onset of blurry vision. MRI of brain no lesions. ID consult, Dr. Kumar requested. Spoke to Dr. Sebastian, retinal surgeon who clarified that she has diabetic maculopathy. She injected avastin in eye few days ago. Flurocent angio was negative for thromboembolism. Viral retinitis was also considered by ID but clinical picture was clarified by Dr. Sebastian today. Dr. Gresham at was contacted for further management. He refused to accept transfer . Pt. discharged in stable condition. Patient was advised to follow up with Dr. Sebastian next week. Discharge Exam - Head Exam Head Exam: ATRAUMATIC, NORMAL INSPECTION, NORMOCEPHALIC - Eye Exam Pupil Exam: NORMAL ACCOMODATION - ENT Exam ENT Exam: Mucous Membranes Moist - Neck Exam Neck exam: Normal Inspection - Respiratory Exam Respiratory Exam: NORMAL BREATHING PATTERN - Cardiovascular Exam Cardiovascular Exam: REGULAR RHYTHM, +S1, +S2 - GI/Abdominal Exam GI & Abdominal Exam: Normal Bowel Sounds, Unremarkable - Extremities Exam Extremities exam: normal inspection - Back Exam Back exam: NORMAL INSPECTION - Neurological Exam Neurological exam: Alert, Normal Gait, Oriented x3 - Psychiatric Exam Psychiatric exam: Normal Affect - Skin Skin Exam: Normal Color, Warm Discharge Plan - Follow Up Plan Condition: STABLE Disposition: HOME/ ROUTINE Instructions: Breast Cancer in Women (DC), Eating During Cancer Treatment (DC) , Implanted Venous Access Port (DC), Chemo Induced Nausea and Vomiting (GEN), Chemoembolization Cancer Therapy (DC) Referrals: Curt Domingo MD [Staff Provider] - Keyona Bradley MD [Primary Care Provider] -
--- NOTE | 2016-12-16 01:21 | PN ---
DATE: 12/15/2016 LOCATION: The patient seen in room 560, bed 2. SUBJECTIVE: No fevers. No chills. The patient was seen early this morning. PHYSICAL EXAMINATION: VITAL SIGNS: Temperature is 97, blood pressure is 113/40, respiratory rate of 18, heart rate of 72. HEENT: Unremarkable. NECK: Supple. LUNGS: Decreased breath sounds. HEART: Sounds normal S1 and S2. ABDOMEN: Soft, nontender. LABORATORY EXAMINATION: Reveals a white count of 4.3, hemoglobin of 8, BUN of 16, creatinine of 1.0. Microbiology is noted. Cultures are negative. Blood cultures are negative. ASSESSMENT AND PLAN: This is a 56-year-old female with hypertension, diabetes, breast cancer stage III, status post chemotherapy and Port-A-Cath and pseudomembranous colitis, presenting with bilateral blurred vision, right more so than left and acute retinal necrosis; however, this morning, Dr. Bradley had discussion with medicare coordinator doctor and the medicare coordinator, Dr. Sebastian, who had seen this patient, they feel that the patient does not have acute retinal necrosis and blurred vision, all secondary to findings of her diabetic retina and the patient is to be discharged and follow up. Case discussed with Dr. Bradley at length. Curt Domingo MD
== END 2016-12-15 16:35 | disposition home or self-care (01) | DRG 125 ==
LOC: ED 14:51 → ERH 15:39 → 5RNO 19:13 → OBSVTOIN 12-14 14:00
PROVIDERS: ADMIT Internal Medicine Medical Oncology; ATTEND Internal Medicine Medical Oncology
DX: E11.319 Type 2 diabetes mellitus with unspecified diabetic retinopathy without macular edema (principal); C50.919 Malignant neoplasm of unspecified site of unspecified female breast; E11.65 Type 2 diabetes mellitus with hyperglycemia; I10 Essential (primary) hypertension; D64.9 Anemia, unspecified; Z85.3 Personal history of malignant neoplasm of breast; Z79.4 Long term (current) use of insulin; Z79.82 Long term (current) use of aspirin; Z79.899 Other long term (current) drug therapy; Z92.21 Personal history of antineoplastic chemotherapy; Z88.5 Allergy status to narcotic agent

== ENCOUNTER 2016-12-27 02:13 | Emergency (ER) | payer BC, OTHER ==
[2016-12-27 02:14] VITALS: BMI 33.6
[2016-12-27 02:35] VITALS: BP 148/103; PULSE 89; RESP 18; TEMP 98.3; O2SAT 95
--- NOTE | 2016-12-27 04:20 | ED PDOC ---
Arrival/HPI - General Historian: Patient EM Caveat: Acuity of Condition - History of Present Illness Time/Duration: Prior to Arrival, Other (4-5 days) Symptom Onset: Gradual Symptom Course: Worsening Quality: Aching Severity Level: 6, 7 Activities at Onset: Light Context: Sitting <Lulu Galvez - Last Filed: 12/27/16 05:17> <JasvirYary - Last Filed: 12/27/16 05:46> - General Chief Complaint: Hip Pain Time Seen by Provider: 12/27/16 02:31 - History of Present Illness Narrative History of Present Illness (Text): 12/27/16 04:29 56 years old female with hx of breast cancer on chemo, DM2, HTN, anemia, presents for right hip pain for past 5 days. The patient states that it started while pt was trying to get up in the toilet while trying to defecate. Denies any trauma or previous such episodes. She states that it initially occurred while trying to bend down. However, the pain has progressively worsened and become constant. Denies any hx of back pain, hip replacement/fracture, osteopenia, popping sensation, paresthesias, weakness, ROM limitation, fever, chills, nausea, vomiting. PCP: Bhavin Onc: Kirk (Lulu Galvez) Associated Symptoms (Text): 12/27/16 04:38 Denies any hx of back pain, hip replacement/fracture, osteopenia, popping sensation, paresthesias, weakness, ROM limitation, fever, chills, nausea, vomiting. (Lulu Galvez) Past Medical History - Provider Review Nursing Documentation Reviewed: Yes - Infectious Disease Hx of Infectious Diseases: None - Cardiac Hx Cardiac Disorders: Yes Hx Hypertension: Yes Hx Peripheral Edema: Yes (rle +1 pitting/ lle +2 pitting) - Pulmonary Hx Respiratory Disorders: No - Neurological Hx Dizziness: Yes - HEENT Hx HEENT Disorder: Yes (blurred vision right eye since 12/07/16) Hx Cataracts: Yes (r and left no sx yet) Other/Comment: Wears Glasses - Renal Hx Renal Disorder: No - Endocrine/Metabolic Hx Endocrine Disorders: Yes Hx Diabetes Mellitus Type 1: Yes Hx Diabetes Mellitus Type 2: Yes - Hematological/Oncological Hx Blood Disorders: Yes Hx Cancer: Yes (L side breast ca) Hx Chemotherapy: Yes (EVERY 3 WEEKS AT [facility] [place], LAST 11/25/2016) Other/Comment: left breast lumpectomy with lymph node removal dx 03/2016 - Integumentary Hx Dermatological Disorder: Yes Other/Comment: scar from ulcer to top of right foot from 5 yrs ago scar is pink dry skin, dry skin to feet - Musculoskeletal/Rheumatological Hx Falls: No - Gastrointestinal Hx Gastrointestinal Disorders: Yes (+c dif 12/02/16) Other/Comment: colitis since chemo on and off. Pt has chemo every 3 weeks c/o abd ache tightness, sharp pain unable to walk when she has pain, and pain when having bm's for 1 week after chemo treatment - Genitourinary/Gynecological Hx Genitourinary Disorders: No - Psychiatric Hx Psychophysiologic Disorder: No Hx Substance Use: No - Surgical History Hx Orthopedic Surgery: Yes (L knee sx) Other/Comment: lump removed left breast and lymph nodes due to CA 03/2016. R chest port 05/2016 - Anesthesia Hx Anesthesia: Yes Hx Anesthesia Reactions: No Hx Malignant Hyperthermia: No <Lulu Galvez - Last Filed: 12/27/16 05:17> Family/Social History - Physician Review Nursing Documentation Reviewed: Yes Family/Social History: No Known Family HX Smoking Status: Never Smoked Hx Alcohol Use: Yes (social) Hx Substance Use: No <Lulu Galvez - Last Filed: 12/27/16 05:17> Allergies/Home Meds <Lulu Galvez - Last Filed: 12/27/16 05:17> <Yary Tay - Last Filed: 12/27/16 05:46> Allergies/Adverse Reactions: Allergies morphine Allergy (Mild, Verified 12/27/16 02:32) RASH Home Medications: Home Meds Medication Instructions Recorded Confirmed Aspirin [Ecotrin] 81 mg PO DAILY 06/29/16 12/27/16 Enalapril Maleate [Vasotec] 10 mg PO DAILY 06/29/16 12/27/16 Metformin ER [Glucophage XR] 500 mg PO BID 06/29/16 12/27/16 Insulin Aspart, Recombinant 0 unit SQ ACHS 07/11/16 12/27/16 [Novolog] Ondansetron [Zofran Tab] 8 mg PO BID 07/11/16 12/27/16 Acyclovir [Zovirax] 400 mg PO DAILY 07/12/16 12/27/16 Calcium Carbonate [Calcium] 1 tab PO DAILY 12/01/16 12/27/16 Famotidine [Pepcid] 20 mg PO DAILY 12/01/16 12/27/16 Magnesium Oxide [Magnesium] 500 mg PO DAILY 12/01/16 12/27/16 Ciprofloxacin [Cipro] 500 mg PO DAILY 12/13/16 12/27/16 Insulin Human Regular [Novolin R] 0 units SC PRN PRN 12/13/16 12/27/16 amLODIPine [Norvasc] 5 mg PO DAILY 12/13/16 12/27/16 Review of Systems - Review of Systems Constitutional: absent: Fatigue, Fevers ENT: absent: Hearing Changes Respiratory: absent: SOB, Cough Cardiovascular: absent: Chest Pain, Palpitations Gastrointestinal: absent: Abdominal Pain, Diarrhea, Nausea, Vomiting Genitourinary Female: absent: Dysuria, Hematuria Musculoskeletal: Other (Right hip pain). absent: Back Pain Skin: absent: Rash Neurological: absent: Headache Psychiatric: absent: Anxiety <Lulu Galvez - Last Filed: 12/27/16 05:17> Physical Exam Vital Signs Reviewed: Yes Temperature: Afebrile Pulse: Regular Respiratory Rate: Normal Appearance: Positive for: Uncomfortable Pain Distress: Moderate Mental Status: Positive for: Alert and Oriented X 3 - Systems Exam Head: Present: Atraumatic, Normocephalic Pupils: Present: PERRL Extroacular Muscles: Present: EOMI Conjunctiva: Present: Normal Mouth: Present: Moist Mucous Membranes Pharnyx: No: ERYTHEMA Neck: Present: Normal Range of Motion Respiratory/Chest: Present: Clear to Auscultation Cardiovascular: Present: Regular Rate and Rhythm, Normal S1, S2. No: Murmurs Abdomen: Present: Normal Bowel Sounds. No: Distention Back: Present: Paraspinal Tenderness (right lower lumbar area), Other (right hip musculature pain, bursitis tenderness noted, + right gluteal musculature tenderness. ROM intact.). No: Midline Tenderness Upper Extremity: No: Edema Lower Extremity: Present: NORMAL PULSES. No: CALF TENDERNESS Neurological: Present: GCS=15, Speech Normal Skin: Present: Warm, Dry Psychiatric: Present: Alert, Oriented x 3 <Lulu Galvez - Last Filed: 12/27/16 05:17> Vital Signs Temp Pulse Resp BP Pulse Ox 12/27/16 02:31 98.3 F 89 18 148/103 H 95 Medical Decision Making - RAD Interpretation Rn Intern: ED Physician <Lulu Galvez - Last Filed: 12/27/16 05:17> <Yary Tay - Last Filed: 12/27/16 05:46> ED Course and Treatment: 12/27/16 04:17 56 years old female with PMH breast cancer, DM2, presents for right hip pain: - Right hip x ray - Toradol IM, Flexeril - Reassess and dispo 12/27/16 04:58 Hip x ray neg for fractures. Pt feels better. Pt instructed to take naproxen and flexeril at home for relief of musculoskeletal pain. Follow up with PMD in 2 -3 days. Will discharge. (Lulu Galvez) Patient Seen With Resident: In agreement with resident note which contains more details about the patient. Patient was seen and evaluated with resident. Came up with plan and treatment together. A 56 year old female with right hip pain. Additional HPI as noted by resident. On physical exam, patient has paraspinal tenderness in right lower lumbar area, right gluteal musculature and bursitis tenderness, right hip musculature pain, ROM intact. Ordered radiology of right hip. Will give Flexeril and Toradol. (Yary Tay) - RAD Interpretation Narrative RAD Interpretations (Text): 12/27/16 04:57 Hip x ray: neg for acute fractures (Lulu Galvez) Radiology Orders: 12/27/16 03:57 Hip Right [HIP MIN 2V W/ PELVIS RT] [RAD] Stat - Medication Orders Current Medication Orders: Discontinued Medications Cyclobenzaprine HCl (Flexeril) 5 mg PO STAT STA Stop: 12/27/16 04:04 Last Admin: 12/27/16 04:36 Dose: 5 mg Ketorolac Tromethamine (Toradol) 30 mg IM STAT STA Stop: 12/27/16 04:00 Last Admin: 12/27/16 04:35 Dose: 30 mg MAR Pain Assessment Document 12/27/16 04:35 AD (Rec: 12/27/16 04:36 AD [id number]) Pain Reassessment Is this a pain reassessment? No Presence of Pain Presence of Pain Yes Pain Scale Used Pain Scale Used Numeric Location Left, Right or Bilateral Right Pain Location Body Site Hip Description Intensity of Pain at present 10 IM Administration Charges Document 12/27/16 04:35 AD (Rec: 12/27/16 04:36 AD [id number]) Injection Site MAR Injection Site Right Gluteus Tuan Charges for Administration # of IM Administrations 1 - PA / MANAGER MEDICARE / Resident Statement /DO has reviewed & agrees with the documentation as recorded. MD/ has examined the patient and agrees with the treatment plan. <Lulu Galvez - Last Filed: 12/27/16 05:17> - Scribe Statement The provider has reviewed the documentation as recorded by the Scribe <Yary Tay - Last Filed: 12/27/16 05:46> - Scribe Statement Luna Thao Provider Scribe Attestation: All medical record entries made by the Scribe were at my direction and personally dictated by me. I have reviewed the chart and agree that the record accurately reflects my personal performance of the history, physical exam, medical decision making, and the department course for this patient. I have also personally directed, reviewed, and agree with the discharge instructions and disposition. (Yary Tay) Disposition/Present on Arrival - Present on Arrival Any Indicators Present on Arrival: No History of DVT/PE: No History of Uncontrolled Diabetes: No Urinary Catheter: No History of Decub. Ulcer: No History Surgical Site Infection Following: None - Disposition Have Diagnosis and Disposition been Completed?: Yes Disposition Time: 04:46 Patient Plan: Discharge <Lulu Galvez - Last Filed: 12/27/16 05:17> <Yary Tay - Last Filed: 12/27/16 05:46> - Disposition Diagnosis: Musculoskeletal pain Disposition: HOME/ ROUTINE Condition: STABLE Discharge Instructions (ExitCare): Musculoskeletal Pain (ED) Print Language: CZECH Additional Instructions: Rest is needed for musculoskeletal pain to resolve. Please take Tramadol and Flexeril as needed for pain. Follow up with PMD in 2-3 days. If symptoms worsen, please return to the ER. Prescriptions: Cyclobenzaprine [Cyclobenzaprine HCl] 5 mg PO Q8H #15 tab Naproxen 250 mg PO Q6H PRN 7 Days tablet PRN Reason: Pain, Moderate (4-7) Forms: [facility] (Salvadorean)
--- NOTE | 2016-12-27 08:57 | RAD ---
PROCEDURE: Right Hip Radiographs. HISTORY: right hip pain COMPARISON: None. FINDINGS: BONES: Normal. No fracture. JOINTS: Normal. SOFT TISSUES: Normal. OTHER FINDINGS: None. IMPRESSION: Normal radiographs of right hip.
== END 2016-12-27 05:10 | disposition home or self-care (01) ==
LOC: ED 02:13
DX: M79.1 Myalgia (principal); I10 Essential (primary) hypertension; E11.9 Type 2 diabetes mellitus without complications; Z85.3 Personal history of malignant neoplasm of breast
CPT/HCPCS: 73502; 96372; 99284; J1885

== ENCOUNTER 2018-02-09 16:38 | Emergency (ER) | payer OTHER ==
[2018-02-09 16:38] VITALS: BMI 33.6
[2018-02-09 17:03] VITALS: BP 155/76; PULSE 89; RESP 18; TEMP 99
--- NOTE | 2018-02-09 17:46 | ED PDOC ---
Arrival/HPI - General Chief Complaint: Eye Problem Time Seen by Provider: 02/09/18 16:59 Historian: Patient - History of Present Illness Narrative History of Present Illness (Text): 02/09/18 17:43 A 57 year old female, whose past medical history includes breast cancer on chemo, DM2, HTN, anemia, presents to the emergency department with bilateral eye pain and redness. The patient notes that she has been experiencing this pain in the right eye for the past 4 days and in the left eye since yesterday. She reports going to her instrumentation technician fro further evaluation of redness in her right eye. The patient has a history of cataracts surgery in both eyes and recently had an injection to her right eye (). The patient denies fevers, chills, headache, dizziness, chest pain, shortness of breath, dyspnea on exertion, cough, abdominal pain, nausea, vomiting, diarrhea, back pain, neck pain, urinary/bowel changes, or any other complaint. Time/Duration: Other (3/ 4 days) Symptom Onset: Sudden Symptom Course: Unchanged Activities at Onset: Rest, Light Context: Home Past Medical History - Provider Review Nursing Documentation Reviewed: Yes - Infectious Disease Hx of Infectious Diseases: None - Cardiac Hx Cardiac Disorders: Yes Hx Hypertension: Yes Hx Peripheral Edema: Yes (rle +1 pitting/ lle +2 pitting ON AND OFF) - Pulmonary Hx Respiratory Disorders: No - Neurological Hx Neurological Disorder: No - HEENT Hx HEENT Disorder: Yes (blurred vision right eye since 12/07/16) Hx Cataracts: Yes (r and left no sx yet) Other/Comment: Wears Glasses - Renal Hx Renal Disorder: No - Endocrine/Metabolic Hx Endocrine Disorders: Yes Hx Diabetes Mellitus Type 1: Yes Hx Diabetes Mellitus Type 2: Yes - Hematological/Oncological Hx Blood Disorders: Yes Hx Cancer: Yes (L side breast ca) Hx [place] Yes [place] [facility] [place] Other/Comment: left breast lumpectomy with lymph node removal dx 03/2016 - Integumentary Hx Dermatological Disorder: Yes Other/Comment: scar from ulcer to top of right foot from 5 yrs ago scar is pink dry skin, dry skin to feet - Musculoskeletal/Rheumatological Hx Musculoskeletal Disorders: No Hx Falls: No - Gastrointestinal Hx Gastrointestinal Disorders: Yes (+c dif 12/02/16) Other/Comment: colitis since chemo on and off. Pt has chemo every 3 weeks c/o a bd ache tightness, sharp pain unable to walk when she has pain, and pain when having bm's for 1 week after chemo treatment - Genitourinary/Gynecological Hx Genitourinary Disorders: No - Psychiatric Hx Psychophysiologic Disorder: No Hx Substance Use: No - Surgical History Hx Breast Biopsy: Yes (left breast lumpectomy due to CA) Hx Section: Yes (x2) Hx Musculoskeletal Surgery: Yes (LEFT KNEE TEAR WITH SX) Hx Orthopedic Surgery: Yes (L knee sx) Hx Vascular Access Device: Yes (Right Side Port 03/2016) Other/Comment: lump removed left breast and lymph nodes due to CA 03/2016. R chest port 05/2016 - Anesthesia Hx Anesthesia: Yes Hx Anesthesia Reactions: No Hx Malignant Hyperthermia: No Family/Social History - Physician Review Nursing Documentation Reviewed: Yes Family/Social History: No Known Family HX Smoking Status: Never Smoked Hx Alcohol Use: Yes (social) Hx Substance Use: No Allergies/Home Meds Allergies/Adverse Reactions: Allergies morphine Allergy (Mild, Verified 12/27/16 02:32) RASH Home Medications: Home Meds Medication Instructions Recorded Confirmed Aspirin [Ecotrin] 81 mg PO DAILY 06/29/16 02/09/18 Enalapril Maleate [Vasotec] 10 mg PO DAILY 06/29/16 02/09/18 MetFORMIN ER [Glucophage XR] 500 mg PO BID 06/29/16 02/09/18 Insulin Aspart, Recombinant 0 unit SQ ACHS 07/11/16 02/09/18 [Novolog] Insulin Human Regular [Novolin R] 0 units SC PRN PRN 12/13/16 02/09/18 amLODIPine [Norvasc] 5 mg PO DAILY 12/13/16 02/09/18 Anastrozole [Arimidex] 1 mg PO DAILY 09/20/17 02/09/18 Liraglutide [Victoza] 6 mg SC DAILY 09/20/17 02/09/18 Pravastatin Sodium [Pravachol] 20 mg PO DAILY 09/20/17 02/09/18 Ranitidine HCl [Acid Continuous Improvement Specialist] 150 mg PO DAILY 09/20/17 02/09/18 Review of Systems - Physician Review All systems were reviewed & negative as marked: Yes - Review of Systems Constitutional: absent: Fevers Eyes: Eye Pain Respiratory: absent: SOB, Cough Cardiovascular: absent: Chest Pain, FOURNIER Gastrointestinal: absent: Abdominal Pain, Stool Changes, Nausea, Vomiting Genitourinary Female: absent: Urine Output Changes Musculoskeletal: absent: Back Pain, Neck Pain Neurological: absent: Headache, Dizziness Physical Exam - Physical Exam Narrative Physical Exam (Text): 02/09/18 17:48 Gen: VS reviewed, alert, well developed, well nourished, nontoxic, mild distress. ENT: normal pharynx. Eye: EOMI, PERRL. bilateral scleral injection with clear to white discharge bilaterally Neck: no JVD, supple, no adenopathy. CV: regular rate, regular rhythm, no rubs, no murmur, no gallops, S1, S2, pulses equal and strong. Pulm: no distress, clear to auscultation, no wheeze, no rhonchi, breath sounds equal, no rales. Abd: soft, nontender, no guarding, no rebound, no rigidity, normal bowel sounds. Ext: no edema. Skin: good color, no rash, no cyanosis. Psych: responds appropriately to questions, normal affect. Neuro: oriented x 3, CN2-12 intact grossly, motor intact, sensation intact. Vital Signs Reviewed: Yes Vital Signs Temp Pulse Resp BP Pulse Ox 02/09/18 16:38 99 F 89 18 155/76 H 97 Temperature: Afebrile Blood Pressure: Hypertensive Pulse: Regular Respiratory Rate: Normal Appearance: Positive for: Well-Appearing, Non-Toxic, Comfortable Pain Distress: None Mental Status: Positive for: Alert and Oriented X 3 Medical Decision Making ED Course and Treatment: 02/09/18 17:48 Impression: A 57 year old female presents to the emergency department with a complaint of bilateral eye pain. Plan: -- Reassess and disposition Prior Visits: Notes and results from previous visits were reviewed. Progress Notes: 02/09/18 17:57 patient seen for bilateral eye redness, irritation, mild discharge, pain and photophobia. pain resolved after admin tetracaine eye drops. there was no abnormal fleurescein uptake to suggest corneal abrasion. rx abx eyedrops and refer back to ophthmaologist. - Scribe Statement The provider has reviewed the documentation as recorded by the Azucena Linn Provider Scribe Attestation: All medical record entries made by the Scribe were at my direction and personally dictated by me. I have reviewed the chart and agree that the record accurately reflects my personal performance of the history, physical exam, medical decision making, and the department course for this patient. I have also personally directed, reviewed, and agree with the discharge instructions and disposition. Disposition/Present on Arrival - Present on Arrival Any Indicators Present on Arrival: No History of DVT/PE: No History of Uncontrolled Diabetes: No Urinary Catheter: No History of Decub. Ulcer: No History Surgical Site Infection Following: None - Disposition Have Diagnosis and Disposition been Completed?: Yes Diagnosis: Conjunctivitis Disposition: HOME/ ROUTINE Disposition Time: 17:57 Patient Plan: Discharge Patient Problems: Current Active Problems Problem Status Onset Conjunctivitis Acute Condition: STABLE Discharge Instructions (ExitCare): Conjunctivitis ([place]) Additional Instructions: return for any new or worsening symptoms. follow up with your eye doctor as soon as possible- in other words, do not miss your upcoming appointment. Prescriptions: Erythromycin 0.5% [Erythromycin] 1 applic LEFTEYE QID 5 Days #1 tube Referrals: Berenice Delcid DO [Primary Care Provider] - Follow up with primary Forms: [employer] (Sudanese)
[2018-02-09 18:10] VITALS: O2SAT 98
== END 2018-02-09 18:09 | disposition home or self-care (01) ==
LOC: ED 16:38
DX: H10.9 Unspecified conjunctivitis (principal); E11.9 Type 2 diabetes mellitus without complications; I10 Essential (primary) hypertension; Z85.3 Personal history of malignant neoplasm of breast